=== PATIENT | female | born 1955 | race Caucasian/White ===

== ENCOUNTER 2020-03-13 09:43 | Outpatient (CLI) | payer OTHER, SELFPAY ==
--- NOTE | ~2020-03-13 | CT_ITS ---
EXAMINATION: CT abdomen pelvis w con DATE: 03/13/2020 10:38 INDICATION: Abdominal pain and swelling TECHNIQUE: Computed tomography (CT) of the abdomen and pelvis was performed with 100 mL Omnipaque-350 intravenous contrast. Automated exposure control and iterative reconstruction technique were employe d. The dose-length product was 690.92 mGy-cm. COMPARISON: None FINDINGS: Mild atelectasis/scarring in the lingula and right lower lobe. Heart size is normal. No pericardial o r pleural effusion. Cholecystectomy clips at the gallbladder fossa. Liver, pancreas and bilateral adr enal glands are normal. Multiple splenic calcification consistent with old granulomatous disease. 12 mm cyst at the lower pole of the right kidney and multiple small bilateral parapelvic cysts at the bi lateral renal satnam. Status post appendectomy with suture line along the short remaining appendiceal s tump. No abnormal bowel wall thickening or obstruction. Bladder is normal. The uterus is not identifi ed and has likely been surgically resected. No free intraperitoneal gas or fluid. No pathologically e nlarged abdominal or pelvic lymphadenopathy. Mild lumbar levoscoliosis with mild to moderate spondylo sis. Mild to moderate bilateral hip osteoarthritis. IMPRESSION: 1. No acute intra-abdominal/pelvic process. Reviewed, dictated and finalized at location A.
[2020-03-13 10:31] LABS: Estimated Glomerular Filt Rate > 60
== END 2020-03-13 09:44 | disposition home or self-care (01) ==
PROVIDERS: PCP Family Medicine; Visit Provider Family Medicine
DX: R19.09 Other intra-abdominal and pelvic swelling, mass and lump (principal)
CPT/HCPCS: 74177; Q9967

== ENCOUNTER 2020-05-07 00:42 | Outpatient (CLI) | payer OTHER, SELFPAY ==
[2020-05-07 17:41] LABS: SARS-CoV-2 RNA PCR Negative
== END 2020-05-07 00:43 | disposition home or self-care (01) ==
LOC: ANHCOVIDDT 00:42
PROVIDERS: PCP Family Medicine; Visit Provider Internal Medicine Gastroenterology
DX: Z01.812 Encounter for preprocedural laboratory examination (principal); Z20.828 Contact with and (suspected) exposure to other viral communicable diseases
CPT/HCPCS: 87635; C9803; U0003

== ENCOUNTER 2020-05-09 02:49 | Day surgery (SDC) | payer OTHER, SELFPAY ==
[2020-05-02 14:47] VITALS: BMI 33.3
[2020-05-09 10:27] VITALS: BP 122/71; PULSE 90; RESP 18; TEMP 36.6; O2SAT 97; BMI 32.5
[2020-05-09] MEDS: LACTATED RINGERS 1,000 ML 150 ML IV CONT (10:43)
--- NOTE | 2020-05-09 11:00 | WPDANESEPPF ---
Anes - Initial Pre Proc Eval Procedure: Operation Date: 05/09/20 11:30 Proposed Procedures p Colonoscopy - Woody Mathur MD Date/Time: 05/09/20 11:00 Surgeon: Woody Mathur MD Pre Op Diagnosis: Unspecified Abdominal/Pelvic Pain Patient Data Age: 64 Gender: F Height: 5 ft 5 in Weight: 88.8 kg Last Vital Signs Temp 97.8 F 05/09/20 10:27 Pulse 90 05/09/20 10:27 Resp 18 05/09/20 10:27 BP 122/71 05/09/20 10:27 Pulse Ox 97 05/09/20 10:27 Allergies Allergy/AdvReac Type Severity Reaction Status Date / Time adhesive Allergy Mild RASH Verified 05/09/20 10:25 trazodone Allergy Unknown BRAIN Verified 05/09/20 10:25 SEIZURES Home Medications Medication Instructions Recorded Confirmed Type levothyroxine 88 mcg tablet 88 mcg PO DAILY #90 tablet 11/03/19 05/02/20 Rx pravastatin 20 mg tablet See Rx Instructions .ROUTE 03/13/20 05/02/20 Rx .COMPLEX #90 tablet cholecalciferol (vitamin D3) 1,250 1,250 mcg PO WEEKLY #8 cap 03/15/20 05/02/20 Rx mcg (50,000 unit) capsule nitrofurantoin macrocrystal 100 mg 100 mg PO Q12H #10 cap 03/29/20 03/29/20 Rx capsule sodium,potassium,mag sulfates 17.5 480 ml PO .COMPLEX #354 ml 04/17/20 05/02/20 Rx gram-3.13 gram-1.6 gram oral soln fluoxetine 10 mg capsule 10 mg PO BID #180 cap 05/01/20 05/02/20 Rx fluoxetine 20 mg capsule 20 mg PO BID #180 cap 05/01/20 05/02/20 Rx pregabalin 150 mg capsule 150 mg PO BID #120 cap 05/03/20 Rx pantoprazole 40 mg tablet,delayed 40 mg PO QAM #90 tablet 05/07/20 Rx release Patient hx anesthesia problems: none Family hx anesthesia problems: none PMFSH Past Medical History Medical History (Updated 05/09/20 @ 11:00 by Ab Richard MD) Gastroesophageal reflux disease Hypothyroidism Mass of abdomen MEHRDAD on CPAP Pelvic pain Screening, lipid Family History Family History Father Hypertension Cerebrovascular accident Other Depression Diabetes mellitus Family history of alcoholism Family history of coronary artery disease Family history of malignant neoplasm of brain Family history of mental disorder Family history of seizure disorder Social History Social History Smoking status: Never smoker Alcohol intake: current Substance use type: does not use Living arrangements: with family Spiritual care concerns: No Anes - Eval Final PreProcedure Day of Procedure 05/09/20 11:00 Patient weight: overweight Heart: regular rate and rhythm Lungs: clear to auscultation Airway: Mallampati scale class II Neurological: alert and oriented Last oral intake: >/= 8 hours ASA classification: III Emergent: no Anesthetic plan: proceed Anesthesia type and monitoring: general GIVS and standard monitoring Informed Consent: The patient's anesthetic plan and its attendant risks and benefits were discussed with the patient/family/POA. Questions were solicited and answers provided to the satisfaction of the patient/family/POA.
--- NOTE | 2020-05-09 11:03 | PM.HPGS ---
History of Present Illness History of Present Illness Consent: Risks, benefits, and alternatives have been discussed and questions answered. Patient agrees to proceed with procedure. Chief complaint: Unspecified Abdominal/Pelvic Pain Narrative: Gretchen Gibson is a 64 year old female with lower abdominal pain but now resolved, she is due to have a colonoscopy. Review of Systems Constitutional: Constitutional: Denies headache(s) and Denies weakness Eyes: Eyes: Denies blurry vision ENT: Reports Normal hearing present, Denies headache(s) and Denies neck pain Cardiovascular: Cardiovascular: Denies chest pain and Denies dyspnea Respiratory: Respiratory: Denies dyspnea Gastrointestinal: Gastrointestinal: Reports no additional gastrointestinal complaints Genitourinary: Genitourinary: Denies dysuria Musculoskeletal: Musculoskeletal: Denies neck pain Integumentary/Breasts: Skin/Breast: Denies dry skin Neurologic: Reports Normal hearing present, Denies headache(s) and Denies weakness Psychiatric: Psychiatric: Denies anxiety Endocrine: Endocrine: Denies change in body appearance Hematologic/Lymphatic: Hematologic/Lymphatic: Denies easy bleeding Allergic/Immunologic: Allergic/Immunologic: Denies urticaria PMF Past Medical History Medical History (Updated 05/09/20 @ 11:03 by Woody Mathur MD) Colon cancer screening Gastroesophageal reflux disease Hypothyroidism Mass of abdomen MEHRDAD on CPAP Pelvic pain Screening, lipid Family History Family History Father Hypertension Cerebrovascular accident Other Depression Diabetes mellitus Family history of alcoholism Family history of coronary artery disease Family history of malignant neoplasm of brain Family history of mental disorder Family history of seizure disorder Social History Social History Smoking status: Never smoker Alcohol intake: current Substance use type: does not use Living arrangements: with family Spiritual care concerns: No Meds Home Medications and Allergies Home Medications Medication Instructions Recorded Confirmed Type levothyroxine 88 mcg tablet 88 mcg PO DAILY #90 tablet 11/03/19 05/02/20 Rx pravastatin 20 mg tablet See Rx Instructions .ROUTE 03/13/20 05/02/20 Rx .COMPLEX #90 tablet cholecalciferol (vitamin D3) 1,250 1,250 mcg PO WEEKLY #8 cap 03/15/20 05/02/20 Rx mcg (50,000 unit) capsule nitrofurantoin macrocrystal 100 mg 100 mg PO Q12H #10 cap 03/29/20 03/29/20 Rx capsule sodium,potassium,mag sulfates 17.5 480 ml PO .COMPLEX #354 ml 04/17/20 05/02/20 Rx gram-3.13 gram-1.6 gram oral soln fluoxetine 10 mg capsule 10 mg PO BID #180 cap 05/01/20 05/02/20 Rx fluoxetine 20 mg capsule 20 mg PO BID #180 cap 05/01/20 05/02/20 Rx pregabalin 150 mg capsule 150 mg PO BID #120 cap 05/03/20 Rx pantoprazole 40 mg tablet,delayed 40 mg PO QAM #90 tablet 05/07/20 Rx release Allergies Allergy/AdvReac Type Severity Reaction Status Date / Time adhesive Allergy Mild RASH Verified 05/09/20 10:25 trazodone Allergy Unknown BRAIN Verified 05/09/20 10:25 SEIZURES Vital Signs Vital Signs - 24 hr 05/09/20 10:27 Temperature 97.8 F Pulse Rate 90 Respiratory Rate 18 Blood Pressure 122/71 Pulse Oximetry 97 Exam Const: General: comfortable and no acute distress HENMT: General nose exam: Normal nares present Eyes: General: appearance normal, both eyes and all related structures Neck: Neck: no JVD Resp: Auscultation: clear to auscultation bilaterally Cardio: Rate: regular rate Rhythm: regular rhythm GI: Inspection: non-distended GI Palp: Yes Soft to palpation Skin: General skin exam: normal color Neuro: General: gait normal Speech: normal speech Extrem: General: normal to inspection Psych: Mental Status: mental status grossly normal Assessment and Plan Asse
[2020-05-09 11:27] VITALS: BP 104/60; PULSE 59; RESP 18; O2SAT 96
[2020-05-09 11:37] VITALS: BP 119/69; PULSE 64; RESP 18; O2SAT 98
[2020-05-09 11:47] VITALS: BP 145/70; PULSE 59; RESP 14; O2SAT 100
== END 2020-05-09 12:02 | disposition home or self-care (01) ==
PROVIDERS: PCP Family Medicine; Visit Provider Internal Medicine Gastroenterology
PROC: 0DJD8ZZ Inspection of Lower Intestinal Tract, Via Natural or Artificial Opening Endoscopic (ICD-10-PCS; CPT 45378; principal; 2020-05-09 11:30)
DX: K63.3 Ulcer of intestine (principal); K64.8 Other hemorrhoids; K21.9 Gastro-esophageal reflux disease without esophagitis; G47.33 Obstructive sleep apnea (adult) (pediatric)
CPT/HCPCS: 45380; 88305; J2704; J7120

== ENCOUNTER 2020-10-02 10:59 | Outpatient (CLI) | payer MEDICARE, SELFPAY ==
--- NOTE | ~2020-10-02 | XR_ITS ---
EXAMINATION: XR hip RT min 2V DATE: 10/02/2020 11:18 INDICATION: Right hip pain. TECHNIQUE: 2 views of right hip were obtained. COMPARISON: CT abdomen and pelvis 03/13/2020 FINDINGS: Bone alignment is normal. No fracture. There is moderate right hip osteoarthritis. IMPRESSION: 1. Moderate right hip osteoarthritis. Reviewed, dictated and finalized at location A.
== END 2020-10-02 11:00 | disposition home or self-care (01) ==
LOC: CHSIMG 11:01
PROVIDERS: PCP Family Medicine; Visit Provider Family Medicine
DX: M25.551 Pain in right hip (principal)
CPT/HCPCS: 73502

== ENCOUNTER → 2020-10-27 10:07 | Outpatient (CLI) | payer MEDICARE, SELFPAY ==
--- NOTE | ~2020-10-27 | MR_ITS ---
EXAMINATION: MR hip RT wo con DATE: 10/27/2020 12:00 INDICATION: Right hip pain. TECHNIQUE: Magnetic resonance imaging (MRI) of the right hip was performed without intravenous contra st. Sequences included axial and coronal PD-weighted FS FSE and axial T1-weighted FSE of the pelvis. Sequences of the hip included 2D FIESTA, T1-weighted fast GRE, and axial, coronal, and sagittal PD-we ighted FS FSE. COMPARISON: Right hip radiographs 10/02/2020 FINDINGS: Bones/cartilage: There is lumbar levoscoliosis and moderate spondylosis. The femoral head/neck offsets are normal. The hip joints demonstrate symmetric moderate osteoarthritis characterized by deep partial thickness car tilage loss and osteophytes. Labrum: The right acetabular labrum is intact. Fluid: There is no hip joint effusion. There is mild right-sided trochanteric bursitis. Soft tissues: The iliopsoas tendons are normal. There is moderate tendinopathy of the hamstring origins bilaterally . The gluteus minimus and gluteus medius tendons are intact bilaterally. IMPRESSION: 1. Moderate osteoarthritis of the hips. Reviewed, dictated and finalized at location A.
== END ==
PROVIDERS: PCP Family Medicine; Visit Provider Family Medicine
DX: M16.11 Unilateral primary osteoarthritis, right hip (principal)
CPT/HCPCS: 73721

== ENCOUNTER 2020-11-21 13:23 | Outpatient (CLI) | payer MEDICARE, SELFPAY ==
--- NOTE | ~2020-11-21 | XR_ITS ---
EXAMINATION: XR lg joint inject/asp w image DATE: 11/21/2020 14:22 INDICATION: Right hip arthritis is evident with pain. TECHNIQUE: A time-out was performed to verify the patient's name, date of , and procedure to b e performed. The procedure including the risks, benefits, and alternatives was discussed with the pat ient. Risks discussed included bleeding and infection. The patient understood the risks and agreed to proceed. The skin overlying the right hip joint was prepped and draped in usual sterile fashion. A nesthetic was administered with 1% lidocaine subcutaneously. A 22 G needle was advanced under fluoro scopic guidance into the joint. Injection of 1 mL of Omnipaque 240 confirmed intra-articular positio n of the needle. Subsequently, injectate consisting of 3 mm of a 2:1 mixture of 0.5% Marcaine: 80 mg /mL Depo-Medrol for a total dose of 80 mg Depo-Medrol was instilled. Washout of contrast was seen con firming intra-articular administration. The needle was removed and the entry site was cleaned and colleen ssed. There were no immediate complications. Fluoroscopy exposure time was 0.1 minutes. The total nu mber of images was 2. FINDINGS: Real-time fluoroscopy demonstrates the needle in the right hip joint. Patient's pain prior to procedure:3/10. Patient's pain following the procedure: 0/10. IMPRESSION: 1. Right hip joint injection of local anesthetic and steroid with decrease in the patient's presentin g pain. Reviewed, dictated and finalized at location A. IMPRESSION: 1. Right hip joint injection of local anesthetic and steroid with decrease in t he patient's presenting pain.
== END 2020-11-21 13:24 | disposition home or self-care (01) ==
PROVIDERS: PCP Family Medicine; Visit Provider Orthopaedic Surgery
DX: M16.11 Unilateral primary osteoarthritis, right hip (principal)
CPT/HCPCS: 20610; 77002; J1040; Q9966

== ENCOUNTER 2021-09-24 10:27 | Outpatient (CLI) | payer MEDICARE, SELFPAY ==
--- NOTE | ~2021-09-24 | XR_ITS ---
EXAMINATION: XR lg joint inject/asp w image DATE: 09/24/2021 11:12 INDICATION: Right hip arthritis. TECHNIQUE: A time-out was performed to verify the patient's name, date of , and procedure to b e performed. The procedure including the risks, benefits, and alternatives was discussed with the pat ient. Risks discussed included bleeding and infection. The patient understood the risks and agreed to proceed. The skin overlying the right hip joint was prepped and draped in usual sterile fashion. A nesthetic was administered with 1% lidocaine subcutaneously. A 22 G needle was advanced under fluoro scopic guidance into the joint. Injection of 1 mL of Omnipaque 240 confirmed intra-articular positio n of the needle. Subsequently, injectate consisting of 2 mL 0.5% bupivacaine and 2 mL 40 mg/mL Depo- Medrol was instilled. The needle was removed and the entry site was cleaned and dressed. There were no immediate complications. Fluoroscopy exposure time was 0.1 minutes. The total number of images wa s 2. FINDINGS: Real-time fluoroscopy demonstrates the needle in the right hip joint. Patient's pain prior to procedure:12/27. Patient's pain following the procedure: 08/29. IMPRESSION: 1. Fluoroscopy guided right hip joint injection of local anesthetic and steroid with decrease in the patient's presenting pain. Reviewed, dictated and finalized at location A. [employer] WORK[employer]
== END 2021-09-24 10:28 | disposition home or self-care (01) ==
LOC: ANHIMG 10:34
PROVIDERS: PCP Family Medicine; Visit Provider Orthopaedic Surgery
DX: M25.551 Pain in right hip (principal)
CPT/HCPCS: 20610; 77002; J1030; Q9966

== ENCOUNTER 2022-02-21 11:43 | Outpatient (CLI) | payer MEDICARE, SELFPAY ==
--- NOTE | 2022-02-21 12:28 | ECG_ITS ---
Measurements Intervals [place] Rate: 68 P: [place]: 0 QRS: -1 QRSD: 70 T: 35 QT: 378 QTc: 404 Interpretive Statements BASELINE ARTIFACT/POOR QUALITY ECG SUPRAVENTRICULAR RHYTHM LOW QRS VOLTAGE IN PRECORDIAL LEADS [QRS DEFLECTION < 1.0 mV IN CHEST LEADS] NONSPECIFIC ST & T-WAVE ABNORMALITY BASELINE ARTIFACT PRECLUDES MORE ACCURATE RHYTHM DIAGNOSIS Electronically Signed On 02-21-2022 16:32:48 CDT by Jon Michelle M.D.
[2022-02-21 13:05] LABS: Urine Cotinine NEGATIVE
[2022-02-21 13:07] LABS: Albumin Level 4.4 g/dL (3.5-5.1); Anion Gap 7 mmol/L (8-16); Basophils Absolute Auto 0.1 K/mm3 (0.0-0.1); Basophils Percent Auto 0.9 % (0.2-1.2); Blood Urea Nitrogen 8 mg/dL (7-17); Calcium 9.1 mg/dL (8.4-10.2); Carbon Dioxide 28 mmol/L (22-30); Chloride 106 mmol/L (98-107); Eosinophils Absolute Auto 0.2 K/mm3 (0-0.3); Eosinophils Percent Auto 3.4 % (0-4.4); Estimated Glomerular Filt Rate > 60; Glucose 116 mg/dL (65-110); Hematocrit 42.9 % (37.0-47.0); Hemoglobin 13.8 g/dL (12.0-15.0); Immature Granulocyte Absolute 0.01 K/mm3 (0.00-0.031); Immature Granulocyte Percent A 0.2 % (0-0.5); Lymphocytes Absolute Auto 1.67 K/mm3 (0.9-3.2); Lymphocytes Percent Auto 29.8 % (18.3-44.2); Mean Corpuscular HGB Conc 32.2 g/dl (32-36); Mean Corpuscular Hemoglobin 30.3 pg (26-34); Mean Corpuscular Volume 94.3 fl (80-100); Mean Platelet Volume 10.2 fl (7.4-10.4); Monocytes Absolute Auto 0.5 K/mm3 (0.1-0.6); Monocytes Percent Auto 8.7 % (2.6-8.5); Neutrophils Absolute Auto 3.2 K/mm3 (1.3-6.7); Platelet Count Result 207 k/mm3 (150-375); Potassium 4.2 mmol/L (3.4-5.0); Red Blood Count 4.55 M/mm3 (4.2-5.4); Sodium 141 mmol/L (137-145); White Blood Count 5.6 K/mm3 (4.5-10.0)
[2022-02-21 13:09] LABS: Hemoglobin A1C 5.4 % (<5.7)
[2022-02-21 13:26] LABS: Partial Thromboplastin Time 25.8 SECONDS (22.3-36.8)
[2022-02-21 14:13] LABS: Appearance Urine Clear (Clear); Bilirubin Urine Negative (Negative); Blood Urine Negative (Negative); Color Urine Yellow (Yellow); Glucose Urine UA Negative (Negative); Ketones Urine Negative (Negative); Leukocyte Esterase Ur Negative LEU/UL (Negative); Nitrate Urine Negative (Negative); Protein Urine Negative (Negative); Urobilinogen Urine 0.2 mg/dL (<2.0)
[2022-02-21 14:16] LABS: Add Urine Microscopic? NO
== END 2022-02-21 11:44 | disposition home or self-care (01) ==
LOC: ANHSURGERY 11:46
PROVIDERS: PCP Family Medicine; Visit Provider Orthopaedic Surgery
DX: M17.10 Unilateral primary osteoarthritis, unspecified knee (principal); Z01.818 Encounter for other preprocedural examination; R94.31 Abnormal electrocardiogram [ECG] [EKG]
CPT/HCPCS: 80048; 80307; 81003; 82040; 83036; 85025; 85610; 85730; 87081; 93005

== ENCOUNTER 2022-03-06 18:22 | Observation (INO) | payer MEDICARE, SELFPAY ==
[2022-02-21 11:21] VITALS: BP 140/66; PULSE 68; RESP 16; TEMP 37.4; O2SAT 99
--- NOTE | 2022-02-21 11:46 | PC.NURSE ---
Report to the Outpatient Waiting Room, entrance under the green pavilion located off [facility], at time _0830_ on date _[id number]_. OR Time: _1030_. - You and your visitor will be asked a series of questions to screen for COVID 19 for your protection. - Only one visitor is allowed at this time. - The patient visitor is requested to leave or wait in car when not with patient. - A mask is required within the hospital. Patients may have clear liquids (water, carbonated beverages, clear teas, apple juice) until 3 hours prior to surgery with a maximum of 20 ounces. - No food from midnight until time of surgery Take the following medications with a SIP of water the morning of surgery: ___Bupropion, Fluoxetine, Levothyroxine and Pregabalin Medications to discontinue per physician None Date to take last dose Please no make-up, nail estonian, hairspray, perfume, deodorant, or body powder the day of surgery. No jewelry (including any body piercings) or valuables the day of surgery, leave them at home. Please take a shower or bath the night before, or the morning of, surgery with an antibacterial soap. Wear comfortable, loose fitting clothing. - Jewelry must be removed prior to entering the operating room. Rings and piercings that are not removed may be cut off. - The hospital will not accept responsibility for valuables. - Please leave all valuables, including medications, at home the day of surgery. If you are going home after surgery, a licensed electric lift truck driver must drive you home. - NO public transportation without another adult. - We recommend that an adult stay with you for 24 hours following discharge. - We also recommend that you do not drive, make important decision, drink alcoholic beverages, or take any drugs that were not prescribed by your health care provider for at least 24 hours after your discharge time. Follow any additional instructions given to you from your surgeon. If you or anyone in your household have experienced Covid symptoms in the past week, please notify your surgeon or the nurse liaison at the phone number below for possible testing. Telephone instructions given to _Patient__and asked if any additional questions and then verbalized understanding. Patient advised to call surgeon office or pre surgery nurse liaison [phone] if any additional questions.
[2022-02-21 11:54] VITALS: BMI 31.1
[2022-03-05] VITALS (13 sets, daily range): BP systolic 106–136; BP diastolic 54–77; PULSE 65–88; RESP 7–18; TEMP 36.1–36.7; O2SAT 93–100
--- NOTE | 2022-03-05 07:05 | WPDHPUPDATE1 ---
History and Physical Update Update Date/Time: 03/05/22 07:05 History and Physical has been reviewed, including an updated exam of the patient. There are NO changes in the patient's condition. Risks, benefits, and alternatives have been discussed and questions answered. Patient agrees to proceed with procedure.
[2022-03-05] MEDS: ACETAMINOPHEN 500 MG TABLET 1000 MG PO (08:50)
[2022-03-05] MEDS: LACTATED RINGERS 1,000 ML 30 ML IV CONT ×2 (08:51→13:52)
[2022-03-05] MEDS: TRANEXAMIC ACID 1,000MG/ISO100 1,000 MG/100 ML BAG 200 MG IVPB (09:09)
--- NOTE | 2022-03-05 10:22 | WPDANESEPPF ---
Anes - Initial Pre Proc Eval Procedure: Operation Date: 03/05/22 10:30 Proposed Procedures p Right Total Knee Arthroplasty with Left Knee Cortisone Injection - García Ray MD Date/Time: 03/05/22 10:22 Surgeon: García Ray MD Pre Op Diagnosis: Kan Knee DJD Patient Data Age: 66 Gender: F Height: 1.65 m Weight: 80.7 kg Last Vital Signs Temp 36.1 C L 03/05/22 09:15 Pulse 65 03/05/22 09:15 Resp 16 03/05/22 09:15 BP 120/62 03/05/22 09:15 Pulse Ox 99 03/05/22 09:15 O2 Del Method Room Air 03/05/22 09:15 Allergies Allergy/AdvReac Type Severity Reaction Status Date / Time adhesive Allergy Mild RASH Verified 03/05/22 09:24 trazodone Allergy Unknown BRAIN Verified 03/05/22 09:24 SEIZURES Home Medications Medication Instructions Recorded Confirmed Type tizanidine 4 mg tablet 4 mg PO QHS PRN muscle spasticity 06/25/21 03/05/22 Rx #30 tabs pantoprazole 40 mg tablet,delayed 40 mg PO QAM #90 tabs 07/09/21 03/05/22 Rx release bupropion HCl 150 mg 24 hr tablet, 150 mg PO QAM #90 tabs 07/18/21 03/05/22 Rx extended release (Wellbutrin XL) levothyroxine 88 mcg tablet 88 mcg PO DAILY #90 tabs 09/02/21 03/05/22 Rx pregabalin 150 mg capsule 150 mg PO BID #180 caps 11/13/21 03/05/22 Rx Cbd Gummy 1 tab-cap PO HS 02/21/22 03/05/22 History Lactobacillus 1 cap PO HS 02/21/22 03/05/22 History acidophilus-Bifidobac.animalis 2.5 billion cell capsule (Daily Probiotic) acetaminophen 650 mg 325 mg PO HS 02/21/22 03/05/22 History tablet,extended release fluoxetine 10 mg capsule 10 mg PO Q12H 02/21/22 03/05/22 History fluoxetine 20 mg capsule 20 mg PO Q12H 02/21/22 03/05/22 History pravastatin 20 mg tablet 20 mg PO HS 02/21/22 03/05/22 History chlorhexidine gluconate 4 % 1 applic topical ONCE #237 mL 02/26/22 03/05/22 Rx topical liquid (Hibiclens) Patient hx anesthesia problems: none Family hx anesthesia problems: none Results Review: All pre-operative results and documents have been reviewed as part of the pre-operative evaluation. [facility] Past Medical History Medical History BMI 31.0-31.9,adult BMI 32.0-32.9,adult BMI greater than 30 Changing skin lesion Colon cancer screening Depression Gastroesophageal reflux disease History of cough History of ear pain History of high cholesterol History of paranasal sinus congestion Hypothyroidism Mass of abdomen MEHRDAD on CPAP MEHRDAD on CPAP Osteoporosis Pelvic pain Right hip pain RLQ abdominal pain Screening, lipid Skin lesion Ulcer, colon Surgical History Surgical History (Updated 03/05/22 @ 10:22 by Rickey Diaz MD) H/O arthroscopic knee surgery H/O: hysterectomy History of cholecystectomy Family History Family History Father Hypertension Cerebrovascular accident Other Depression Diabetes mellitus Family history of alcoholism Family history of coronary artery disease Family history of malignant neoplasm of brain Family history of mental disorder Family history of seizure disorder Social History Social History Smoking status: Never smoker Alcohol intake: never Substance use: never Substance use type: does not use Other substance usage details: CBD gummies Additional living arrangements comments: Gender identity (if verbalized by the patient): Female Sexual Orientation (if Verbalized by the Patient): Straight or Heterosexual Spiritual care concerns: No Agree to blood products: Yes Anes - Eval Final PreProcedure Day of Procedure 03/05/22 10:22 Patient weight: obese Heart: regular rate and rhythm Lungs: clear to auscultation Airway: Mallampati scale class II Neurological: alert and oriented Last oral intake: >/= 8 hours ASA classification: III Emergent: no Anesthetic plan: proceed Anes
--- NOTE | 2022-03-05 10:45 | PM.IMHP ---
H&P: HPI History of Present Illness Date/Time: 03/05/22 10:45 Chief Complaint: RIGHT KNEE DJD, LEFT KNEE DJD Narrative: Pt presents with Right and Left knee pain that has been present for approximately 2 weeks. NKI. Pt states it feels as if her knee is popping out of place and shifting. The joint feels very unstable. She had a few days where she was unable to bear full weight through the LLE d/t her pain. She has since been ambulating w/ a walker for offloading and stability. She has frequent popping during [id number]/change in position activities. She is finding it difficult to fully extend the left knee d/t her pain. She is taking Tylenol Arthritis for her pain and is unable to take NSAIDS. Current symptoms: Reports popping, instability, shifting and stiffness Location: lateral Character: intermittent, stabbing, worsens w/ weight bearing and throbbing Onset: 3-4 weeks Exacerbated by: weight bearing, kneeling, squatting, stairs and prolonged activity Previous treatments: Braces: left, Walker: left, Ice: left and Elevation: left Improved by treatment/surgery: too soon to tell Review of Systems Review of Systems: All systems reviewed & are unremarkable except as noted in HPI and below Constitutional: Constitutional: Reports no additional constitutional complaints Eyes: Eyes: Reports no additional eye complaints ENT: Reports system reviewed and no additional complaints, except as documented Cardiovascular: Cardiovascular: Reports no additional cardiovascular complaints Respiratory: Respiratory: Reports no additional respiratory complaints Gastrointestinal: Gastrointestinal: Reports no additional gastrointestinal complaints Musculoskeletal: Musculoskeletal: Reports as per HPI Integumentary/Breasts: Skin/Breast: Reports system reviewed and no additional complaints, except as docu Psychiatric: Psychiatric: Reports no additional psychiatric complaints Endocrine: Endocrine: Reports no additional endocrine complaints Hematologic/Lymphatic: Hematologic/Lymphatic: Reports no additional hematologic/lymphatic complaints Allergic/Immunologic: Allergic/Immunologic: Reports no additional allergic/immunologic complaints [facility] Past Medical History Medical History BMI 31.0-31.9,adult BMI 32.0-32.9,adult BMI greater than 30 Changing skin lesion Colon cancer screening Depression Gastroesophageal reflux disease History of cough History of ear pain History of high cholesterol History of paranasal sinus congestion Hypothyroidism Mass of abdomen MEHRDAD on CPAP MEHRDAD on CPAP Osteoporosis Pelvic pain Right hip pain RLQ abdominal pain Screening, lipid Skin lesion Ulcer, colon Surgical History Surgical History H/O arthroscopic knee surgery H/O: hysterectomy History of cholecystectomy Family History Family History Father Hypertension Cerebrovascular accident Other Depression Diabetes mellitus Family history of alcoholism Family history of coronary artery disease Family history of malignant neoplasm of brain Family history of mental disorder Family history of seizure disorder Social History Social History Smoking status: Never smoker Alcohol intake: never Substance use: never Substance use type: does not use Other substance usage details: CBD gummies Additional living arrangements comments: Gender identity (if verbalized by the patient): Female Sexual Orientation (if Verbalized by the Patient): Straight or Heterosexual Spiritual care concerns: No Agree to blood products: Yes Meds Home Medications and Allergies Home Medications Medication Instructions Recorded Confirmed Type tizanidine 4 mg tablet 4 mg PO QHS PRN muscle spasticity 06/25/21 03/05/22 Rx #30 t
--- NOTE | 2022-03-05 11:05 | WPDANESPNB ---
Anes - Peripheral Nerve Block Date/Time: 03/05/22 11:05 I have discussed with the patient/family/POA the placement of a peripheral nerve block for post-operative pain management, including associated risks, benefits, complications, and side effects. Alternative methods of post-operative analgesia were detailed. Questions were solicited and answers provided to the satisfaction of the patient/family/POA. Time-Out: A pre-procedural Time-Out was completed immediately before starting the procedure and confirmed: Patient Identification, Site, Procedure, Patient Position and the Availability of Requisite Equipment. Clinical Indications: Acute post-operative pain management requested by the operative surgeon. Nerve Block Insertion Note Anes-nerve block: femoral right Patient position: supine Skin prep: chlorhexidine Needle: 22 gauge, stimulating, insulated echogenic needle. Needle length: 50 mm Technique: nerve stimulation lost at (mA) (0.35) Injectate: bupivacaine 0.5% with epi 5 mcg/ml (25 cc) Observations: tolerated well Complications: none Procedure start time:: 1102 Procedure end time:: 1105
[2022-03-05] MEDS: ceFAZolin 2 GM/D5W 50 ML 2 GM/50 ML BAG IVPB ×2 (11:15→17:30)
[2022-03-05] MEDS: TRANEXAMIC ACID 1,000 MG/10 ML AMPUL 1000 MG IV PUSH (13:04)
[2022-03-05] MEDS: methylPREDNISolone ACETATE 80 MG/ML VIAL I-ARTICULR (13:59)
[2022-03-05] MEDS: fentaNYL CITRATE INJ (*CRX) 100 MCG/2 ML VIAL 25 MCG IV PUSH ×5 (14:08→14:56)
--- NOTE | 2022-03-05 14:50 | W.PM.PROC2 ---
Procedure Note - Detailed Date of Procedure 03/05/22 Pre-op Diagnosis Kan Knee DJD Post-op Diagnosis Same Procedure Performed RIGHT TKA, LEFT KNEE INJECTION Surgeon García Ray MD Anesthesia General Description of Procedure THE RIGHT KNEE WAS PREPPED AND DRAPED IN THE STERILE FASHION. THERE WAS A 20 DEGREE FLEXION CONTRACTURE AND VALGUS DEFORMITY. A MIDLINE SKIN INCISION WAS MADE. A MEDIAL PARAPATELLAR ARTHROTOMY WAS MADE. THE PATELLA WAS EVERTED. THERE WAS TRICOMPARTMENT DJD. THERE WAS MINIMAL PATELLA DJD. AN INTRAMEDULLARY TING WAS PLACED IN THE FEMUR. A DISTAL FEMORAL CUT WAS MADE IN 5 DEGREES OF VALGUS REMOVING APPROXIMATELY 11 MM OF BONE FROM THE DISTAL FEMUR. THE FEMUR WAS SIZED TO 62.5. A 62.5 FEMORAL CUTTING BLOCK WAS PLACED IN 3 DEGREES OF EXTERNAL ROTATION AND IN ALIGNMENT WITH STEPHANIE'S LINE AND THE TRANSEPICONDYLAR AXIS. ANTERIOR POSTERIOR AND CHAMFER CUTS WERE MADE. THE CUTS WERE EXCELLENT. NEXT AN INTRAMEDULLARY CUTTING GUIDE WAS PLACED IN THE TIBIA. A TRANS TIBIAL CUT WAS MADE ALONG THE LONG AXIS OF THE TIBIA. APPROXIMATELY 10 MM OF BONE WAS REMOVED FROM THE HIGH SIDE OF THE TIBIA. THE TIBIA WAS THEN PLANED TO A SMOOTH SURFACE. POSTERIOR FEMORAL OSTEOPHYTES WERE REMOVED FROM THE FEMORAL CONDYLES. A 67 TIBIAL TRIAL WAS PLACED IN ALIGNMENT WITH THE 1/3 MEDIAL ASPECT OF THE TIBIAL TUBERCLE. THEN A 62.5 FEMORAL TRIAL COMPONENT WAS PLACED. BOTH HAD EXCELLENT FITS. EVENTUALLY A 14 MM POLYETHYLENE TRIAL COMPONENT WAS PLACED. THE KNEE WAS TAKEN THROUGH A RANGE OF MOTION. THE KNEE CAME OUT TO FULL EXTENSION. THERE WAS NO ABNORMAL TILT TO THE PATELLA. THERE WAS GOOD A/P AND VARUS/VALGUS STABILITY. THERE WAS NO EXCESSIVE ROLL BACK WITH FLEXION. THE TRIAL COMPONENTS WERE REMOVED. THEN A 62.5 FEMORAL COMPONENT AND 67 TIBIAL COMPONENT WITH A 14 POLYETHYLENE COMPONENT WERE CEMENTED INTO PLACE. ONCE THE CEMENT WAS HARD THE KNEE WAS TAKEN THROUGH A ROM AGAIN AND FOUND TO BE STABLE WITH NO PATELLA TILT NO EXCESSIVE ROLL BACK WITH FLEXION AND GOOD STABILITY WITH COMPLETE AND FULL EXTENSION. THE KNEE WAS IRRIGATED WITH STERILE BETADINE AND WATER FOR ABOUT 3 MINUTES. THE BLEEDERS WERE CAUTERIZED. THE ARTHROTOMY WAS REPAIRED WITH NUMBER 1 VICRYL. THE SUB CUTANEOUS LAYER WITH 2-0 VICRYL AND THE SKIN WITH MELIDA. THE WOUND WAS WASHED AND A STERILE DRESSING WAS APPLIED. NEXT THE LEFT KNEE WAS PREPPED AND 1CC 80 MG DEPO MEDROL AND 4 CC MARCAINE 0.5% WAS INJECTED IN TO THE LEFT KNEE JOINT. PATIENT WAS EXTUBATED AND SENT TO RECOVERY ROOM Estimated Blood Loss -200.0 Pathology None sent Complications No immediate complications Condition Stable Disposition PACU
--- NOTE | 2022-03-05 15:44 | ADMGEN ---
This patient, Gretchen Gibson, was admitted to 2 Medical Room 259-01. Patient/family oriented to hospital policies and general routines including ID bracelet, bed and alarms, visiting hours, pain management, procedures, bathroom and other care routines, personal items, smoking policy, room service/diet, and visiting hours. Information on how to activate the Rapid Response Team has been discussed. Patient/Family are encouraged to report perceived risks to care and to ask questions if they do not understand what they are told or what they should do.
[2022-03-05] MEDS: oxyCODONE/ACETAMINOPHEN (*CRX) 5-325 MG TABLET 1 TABLET PO (15:56)
[2022-03-05] MEDS: KETOROLAC 15 MG/ML VIAL (*BKC) IV PUSH (17:31)
[2022-03-05] MEDS: SENNA/DOCUSATE SODIUM TABLET 2 TAB PO (17:32)
[2022-03-05] MEDS: PREGABALIN (*CRX) 75 MG CAPSULE 150 MG PO (17:33)
[2022-03-05] MEDS: SODIUM CHLORIDE 0.9% IV 1,000 ML 125 ML IV CONT (18:09)
[2022-03-05] MEDS: FLUoxetine HCL 20 MG CAPSULE PO (20:55)
[2022-03-05] MEDS: ASPIRIN 325 MG ENTERIC TABLET PO (20:55)
[2022-03-05] MEDS: FLUoxetine HCL 10 MG CAPSULE PO (20:55)
[2022-03-05] MEDS: PRAVASTATIN SODIUM 20 MG TABLET PO (20:56)
--- NOTE | ~2022-03-06 | XR_ITS ---
EXAMINATION: XR knee RT 2V DATE: 03/05/2022 14:07 CDT INDICATION: Right total knee arthroplasty TECHNIQUE: 2 views right knee FINDINGS: There is a right total knee arthroplasty in expected position. Subcutaneous gas with fluid and air in the joint and overlying skin suzette are consistent with recent surgery. No evidence of p eriprosthetic fracture. IMPRESSION: 1. Recent right total knee arthroplasty. Reviewed, dictated and finalized at location B.
[2022-03-06] MEDS: KETOROLAC 15 MG/ML VIAL (*BKC) IV PUSH ×4 (00:01→17:38)
[2022-03-06 00:31] VITALS: BP 100/48; PULSE 65; RESP 16; TEMP 36.3; O2SAT 96
[2022-03-06] MEDS: ceFAZolin 2 GM/D5W 50 ML 2 GM/50 ML BAG IVPB ×2 (02:14→09:30)
[2022-03-06 05:45] LABS: Basophils Percent Auto 0.1 % (0.2-1.2); Hematocrit 33.5 % (37.0-47.0); Hemoglobin 10.7 g/dL (12.0-15.0); Immature Granulocyte Absolute 0.08 K/mm3 (0.00-0.031); Immature Granulocyte Percent A 0.6 % (0-0.5); Lymphocytes Absolute Auto 0.96 K/mm3 (0.9-3.2); Lymphocytes Percent Auto 7.7 % (18.3-44.2); Mean Corpuscular HGB Conc 31.9 g/dl (32-36); Mean Corpuscular Hemoglobin 30.6 pg (26-34); Mean Corpuscular Volume 95.7 fl (80-100); Mean Platelet Volume 10.1 fl (7.4-10.4); Monocytes Absolute Auto 1.1 K/mm3 (0.1-0.6); Monocytes Percent Auto 8.4 % (2.6-8.5); Neutrophils Absolute Auto 10.4 K/mm3 (1.3-6.7); Neutrophils Percent Auto 83.2 % (45.5-73.1); Platelet Count Result 194 k/mm3 (150-375); Red Cell Distribution Width 13.2 % (11.5-14.5); White Blood Count 12.5 K/mm3 (4.5-10.0)
[2022-03-06 05:56] LABS: Anion Gap 8 mmol/L (8-16); Blood Urea Nitrogen 11 mg/dL (7-17); Calcium 8.1 mg/dL (8.4-10.2); Carbon Dioxide 24 mmol/L (22-30); Chloride 104 mmol/L (98-107); Estimated CRCL calculation 63 ml/min; Estimated Glomerular Filt Rate > 60; Glucose 175 mg/dL (65-110); Potassium 4.4 mmol/L (3.4-5.0); Sodium 136 mmol/L (137-145)
[2022-03-06] MEDS: LEVOTHYROXINE SODIUM 88 MCG TABLET PO (06:00)
[2022-03-06 06:07] VITALS: BP 114/48; PULSE 70; RESP 18; TEMP 36.2; O2SAT 98
[2022-03-06] MEDS: PREGABALIN (*CRX) 75 MG CAPSULE 150 MG PO ×2 (08:50→16:08)
[2022-03-06] MEDS: FLUoxetine HCL 20 MG CAPSULE PO ×2 (08:50→21:15)
[2022-03-06] MEDS: buPROPion HCL XL (24 HR) 150 MG TABCR PO (08:50)
[2022-03-06] MEDS: ASPIRIN 325 MG ENTERIC TABLET PO ×2 (08:50→21:15)
[2022-03-06] MEDS: polyethylene glycoL 3350 17 GM POWD.PACK PO (08:50)
[2022-03-06] MEDS: SENNA/DOCUSATE SODIUM TABLET 2 TAB PO ×2 (08:50→16:09)
[2022-03-06] MEDS: PANTOPRAZOLE 40 MG TABLET PO (08:51)
[2022-03-06] MEDS: FLUoxetine HCL 10 MG CAPSULE PO ×2 (08:51→21:15)
[2022-03-06 10:10] VITALS: BP 115/55; PULSE 79; RESP 16; TEMP 36.3; O2SAT 97
[2022-03-06 13:40] VITALS: BP 118/43; PULSE 75; RESP 16; TEMP 36.6; O2SAT 97
[2022-03-06] MEDS: oxyCODONE/ACETAMINOPHEN (*CRX) 5-325 MG TABLET 1 TABLET PO (16:16)
[2022-03-06] MEDS: ONDANSETRON INJ 4 MG/2 ML VIAL IV PUSH (16:18)
--- NOTE | 2022-03-06 16:37 | PC.NURSE ---
On 03/06/22, the License pending nurse, Zachary Sanchez, provided care and completed [employer] documentation on this patient. I have reviewed the License pending nurse's documentation and agree with the findings.
--- NOTE | 2022-03-06 17:07 | PM.PNORT ---
Progress Note: A&P Assessment and Plan (1) DJD (degenerative joint disease) of knee: Qualifiers: Osteoarthritis type: primary Laterality: bilateral Qualified Code(s): M17.0 - Bilateral primary osteoarthritis of knee Code(s): M17.10 - Unilateral primary osteoarthritis, unspecified knee Status: Acute Assessment and Plan: POD 1 DOING WELL. SLOW PROGRESS WITH PT. CONTINUE PT. DC TMRW Subjective Subjective Date/Time Seen: 03/06/22 17POD 1 DOING WELL. NO CALF PAIN Exam Extrem: Other: VSS AFEBRILE DRESSING DRY NV INTACT NEG HOMANS SIGN CALF SOFT NON TENDER Objective Data Vital Signs Vital Signs: Vital Signs - 24 hr 03/05/22 17:40 03/05/22 20:02 03/05/22 20:00 Temperature 36.4 C 36.6 C Pulse Rate 67 85 Respiratory Rate 18 18 Blood Pressure 106/60 108/54 L Pulse Oximetry 97 97 Oxygen Delivery Room Air 03/06/22 00:31 03/06/22 06:07 03/06/22 07:32 Temperature 36.3 C L 36.2 C L Pulse Rate 65 70 Respiratory Rate 16 18 Blood Pressure 100/48 L 114/48 L Pulse Oximetry 96 98 Oxygen Delivery Room Air 03/06/22 10:10 03/06/22 08:50 03/06/22 13:40 Temperature 36.3 C L 36.6 C Pulse Rate 79 75 Respiratory Rate 16 16 Blood Pressure 115/55 L 118/43 L Pulse Oximetry 97 97 Oxygen Delivery Room Air Intake/Output Intake/Output: Intake & Output 03/03/22 03/04/22 03/05/22 03/06/22 23:59 23:59 23:59 23:59 Intake Total 1040 300 Balance 1040 300 Meds/Results Medications: Active Medications Generic Name Dose Route Start Last Admin Trade Name Freq PRN Reason Stop Dose Admin Acetaminophen 1,000 mg 03/05/22 15:15 Acetaminophen 500 Mg Tablet PO Q6H PRN Pain Rated 1-3 Aspirin 325 mg 03/05/22 21:00 03/06/22 08:50 Aspirin 325 Mg Enteric Tablet PO 325 mg Q12HR JASE Administration Bupropion HCl 150 mg 03/06/22 09:00 03/06/22 08:50 Bupropion Hcl Xl (24 Hr) 150 Mg Tabcr PO 150 mg QAM JASE Administration Diazepam 5 mg 08/17/22 15:15 Diazepam (*Crx) 5 Mg Tablet PO Q8H PRN Spasms Diphenhydramine HCl 25 mg 03/05/22 15:15 Diphenhydramine Hcl Inj 50 Mg/Ml Vial IV PUSH Q6H PRN Itching Fluoxetine HCl 10 mg 03/05/22 21:00 03/06/22 08:51 Fluoxetine Hcl 10 Mg Capsule PO 10 mg Q12HR JASE Administration Fluoxetine HCl 20 mg 03/05/22 21:00 03/06/22 08:50 Fluoxetine Hcl 20 Mg Capsule PO 20 mg Q12H JASE Administration Ketorolac Tromethamine 15 mg 03/05/22 18:00 03/06/22 12:04 Ketorolac 15 Mg/Ml Vial (*Bkc) IV PUSH 03/06/22 18:01 15 mg Q6HR JASE Administration Levothyroxine Sodium 88 mcg 03/06/22 06:30 03/06/22 06:00 Levothyroxine Sodium 88 Mcg Tablet PO 88 mcg DAILY@0630 JASE Administration Naloxone HCl 0.1 mg 03/05/22 15:15 Naloxone Hcl 0.4 Mg/Ml Vial IV PUSH Q2M PRN Opiate Reversal Ondansetron HCl 4 mg 03/05/22 15:15 03/06/22 16:18 Ondansetron Inj 4 Mg/2 Ml Vial IV PUSH 4 mg Q4H PRN Administration Nausea And Vomiting Oxycodone/Acetaminophen 1 tablet 03/05/22 15:15 03/06/22 16:16 Oxycodone/Acetaminophen (*Crx) 5-325 Mg Tablet PO 1 tablet Q4H PRN Administration Pain Rated 4-6 Oxycodone/Acetaminophen 2 tablet 03/05/22 15:15 Oxycodone/Acetaminophen (*Crx) 5-325 Mg Tablet PO Q6H PRN Pain Rated 7-10 Pantoprazole Sodium 40 mg 03/06/22 09:00 03/06/22 08:51 Pantoprazole 40 Mg Tablet PO 40 mg QAM JASE Administration Polyethylene Glycol 17 gm 03/06/22 09:00 03/06/22 08:50 Polyethylene Glycol 3350 17 Gm Powd.Pack PO 17 gm QAM JASE Administration Pravastatin Sodium 20 mg 03/05/22 21:00 03/05/22 20:56 Pravastatin Sodium 20 Mg Tablet PO 20 mg HS JASE Administration Pregabalin 150 mg 03/05/22 17:00 03/06/22 16:08 Pregabalin (*Crx) 75 Mg Capsule PO 150 mg BID JASE Administration Senna/Docusate Sodium 2 tab 03/05/22 17:00 03/06/22 16:09 Senna/Docusate Sodium
[2022-03-06 18:15] VITALS: BP 118/48; PULSE 72; RESP 16; TEMP 35.9; O2SAT 95
[2022-03-06 21:15] VITALS: BP 117/55; PULSE 68; RESP 18; TEMP 36; O2SAT 99
[2022-03-06] MEDS: PRAVASTATIN SODIUM 20 MG TABLET PO (21:15)
[2022-03-07] MEDS: oxyCODONE/ACETAMINOPHEN (*CRX) 5-325 MG TABLET 1 TABLET PO ×2 (01:28→16:59)
[2022-03-07 04:39] VITALS: BP 113/49; PULSE 74; RESP 20; TEMP 36; O2SAT 98
[2022-03-07] MEDS: LEVOTHYROXINE SODIUM 88 MCG TABLET PO (06:40)
[2022-03-07] MEDS: PREGABALIN (*CRX) 75 MG CAPSULE 150 MG PO (08:49)
[2022-03-07] MEDS: ASPIRIN 325 MG ENTERIC TABLET PO (08:49)
[2022-03-07] MEDS: PANTOPRAZOLE 40 MG TABLET PO (08:49)
[2022-03-07] MEDS: polyethylene glycoL 3350 17 GM POWD.PACK PO (08:49)
[2022-03-07] MEDS: FLUoxetine HCL 10 MG CAPSULE PO (08:49)
[2022-03-07] MEDS: buPROPion HCL XL (24 HR) 150 MG TABCR PO (08:49)
[2022-03-07] MEDS: FLUoxetine HCL 20 MG CAPSULE PO (08:49)
[2022-03-07] MEDS: SENNA/DOCUSATE SODIUM TABLET 2 TAB PO (08:49)
[2022-03-07] MEDS: oxyCODONE/ACETAMINOPHEN (*CRX) 5-325 MG TABLET 2 TABLET PO (08:57)
[2022-03-07] MEDS: TIZANIDINE HCL 4 MG TABLET PO (08:58)
--- NOTE | 2022-03-07 09:55 | PCOTNOTE ---
Attempted to see patient this am, however patient declined stating, I just finished with physical therapy, and I'm ryanne pooped right now.
[2022-03-07 10:00] VITALS: PULSE 70; RESP 18; TEMP 36.1; O2SAT 97
--- NOTE | 2022-03-07 13:51 | PCOTNOTE ---
Attempted to see patient twice this pm. First attempt, patient was sleeping soundly upon entering and did not disturb. Second attempt, patient was with physical therapy.
[2022-03-07 14:00] VITALS: BP 92/48; PULSE 77; RESP 18; TEMP 36.1; O2SAT 100
--- NOTE | 2022-03-07 16:06 | PM.PNORT ---
Progress Note: A&P Assessment and Plan (1) DJD (degenerative joint disease) of knee: Qualifiers: Osteoarthritis type: primary Laterality: bilateral Qualified Code(s): M17.0 - Bilateral primary osteoarthritis of knee Code(s): M17.10 - Unilateral primary osteoarthritis, unspecified knee Status: Acute Assessment and Plan: POD 2 DOING WELL. OK TO DC HOME F/U IN 3 WEEKS Subjective Subjective Date/Time Seen: 03/07/22 16:06 POD 2 DOING WELL. GOOD PROGRESS WITH PT. NO CALF PAIN Exam Extrem: Other: VSS AFEBRILE DRESSING DRY NV INTACT NEG HOMANS SIGN CALF SOFT NON TENDER Objective Data Vital Signs Vital Signs: Vital Signs - 24 hr 03/06/22 18:15 03/06/22 21:15 03/06/22 21:05 Temperature 35.9 C L 36.0 C L Pulse Rate 72 68 Respiratory Rate 16 18 Blood Pressure 118/48 L 117/55 L Pulse Oximetry 95 99 Oxygen Delivery Room Air 03/07/22 04:39 03/07/22 10:00 03/07/22 08:00 Temperature 36.0 C L 36.1 C L Pulse Rate 74 70 Respiratory Rate 20 18 Blood Pressure 113/49 L Pulse Oximetry 98 97 Oxygen Delivery Room Air 03/07/22 14:00 Temperature 36.1 C L Pulse Rate 77 Respiratory Rate 18 Blood Pressure 92/48 L Pulse Oximetry 100 Oxygen Delivery Intake/Output Intake/Output: Intake & Output 03/04/22 03/05/22 03/06/22 03/07/22 23:59 23:59 23:59 23:59 Intake Total 1040 1370 590 Balance 1040 1370 590 Meds/Results Medications: Active Medications Generic Name Dose Route Start Last Admin Trade Name Freq PRN Reason Stop Dose Admin Acetaminophen 1,000 mg 03/05/22 15:15 Acetaminophen 500 Mg Tablet PO Q6H PRN Pain Rated 1-3 Aspirin 325 mg 03/05/22 21:00 03/07/22 08:49 Aspirin 325 Mg Enteric Tablet PO 325 mg Q12HR JASE Administration Bupropion HCl 150 mg 03/06/22 09:00 03/07/22 08:49 Bupropion Hcl Xl (24 Hr) 150 Mg Tabcr PO 150 mg QAM JASE Administration Diazepam 5 mg 03/05/22 15:15 Diazepam (*Crx) 5 Mg Tablet PO Q8H PRN Spasms Diphenhydramine HCl 25 mg 03/05/22 15:15 Diphenhydramine Hcl Inj 50 Mg/Ml Vial IV PUSH Q6H PRN Itching Fluoxetine HCl 10 mg 03/05/22 21:00 03/07/22 08:49 Fluoxetine Hcl 10 Mg Capsule PO 10 mg Q12HR JASE Administration Fluoxetine HCl 20 mg 03/05/22 21:00 03/07/22 08:49 Fluoxetine Hcl 20 Mg Capsule PO 20 mg Q12H JASE Administration Levothyroxine Sodium 88 mcg 03/06/22 06:30 03/07/22 06:40 Levothyroxine Sodium 88 Mcg Tablet PO 88 mcg DAILY@0630 JASE Administration Naloxone HCl 0.1 mg 03/05/22 15:15 Naloxone Hcl 0.4 Mg/Ml Vial IV PUSH Q2M PRN Opiate Reversal Ondansetron HCl 4 mg 03/05/22 15:15 03/06/22 16:18 Ondansetron Inj 4 Mg/2 Ml Vial IV PUSH 4 mg Q4H PRN Administration Nausea And Vomiting Oxycodone/Acetaminophen 1 tablet 03/05/22 15:15 03/07/22 01:28 Oxycodone/Acetaminophen (*Crx) 5-325 Mg Tablet PO 1 tablet Q4H PRN Administration Pain Rated 4-6 Oxycodone/Acetaminophen 2 tablet 03/05/22 15:15 03/07/22 08:57 Oxycodone/Acetaminophen (*Crx) 5-325 Mg Tablet PO 2 tablet Q6H PRN Administration Pain Rated 7-10 Pantoprazole Sodium 40 mg 03/06/22 09:00 03/07/22 08:49 Pantoprazole 40 Mg Tablet PO 40 mg QAM JASE Administration Polyethylene Glycol 17 gm 03/06/22 09:00 03/07/22 08:49 Polyethylene Glycol 3350 17 Gm Powd.Pack PO 17 gm QAM JASE Administration Pravastatin Sodium 20 mg 03/05/22 21:00 03/06/22 21:15 Pravastatin Sodium 20 Mg Tablet PO 20 mg HS JASE Administration Pregabalin 150 mg 03/05/22 17:00 03/07/22 08:49 Pregabalin (*Crx) 75 Mg Capsule PO 150 mg BID JASE Administration Senna/Docusate Sodium 2 tab 03/05/22 17:00 03/07/22 08:49 Senna/Docusate Sodium Tablet PO 2 tab BID JASE Administration Tizanidine HCl 4 mg 03/05/22 15:15 03/07/22 08:58 Tizanidine Hcl 4 Mg Tablet PO 4 mg HS PRN Administration
--- NOTE | 2022-03-07 16:08 | PM.DS ---
DS: Admitting Diagnosis Discharge Date 03/07/22 Admitting Diagnosis RIGHT KNEE DJD DS: Discharge Diagnosis Discharge Diagnosis (1) DJD (degenerative joint disease) of knee: Qualifiers: Osteoarthritis type: primary Laterality: bilateral Qualified Code(s): M17.0 - Bilateral primary osteoarthritis of knee Code(s): M17.10 - Unilateral primary osteoarthritis, unspecified knee Status: Acute DS: Summary Hospital Course Reason for hospitalization: R TKA Hospital Course: PATIENT WAS ADMITTED S/P RIGHT TOTAL KNEE ARTHROPLASTY FOR POSTOPERATIVE MEDICAL MANAGEMENT, PAIN CONTROL AND MOBILIZATION WITH PHYSICAL AND OCCUPATIONAL THERAPY. THE PATIENT PROGRESSED WELL WITH PT/OT. LABS AND VITALS REMAINED STABLE AND PAIN WELL CONTROLLED. THE PATIENT HAS BEEN CLEARED TO BE DISCHARGED HOME. FOLLOW UP APPOINTMENT SCHEDULED. DISCHARGE INSTRUCTIONS DISCUSSED AT LENGTH WITH THE PATIENT. MEDICATIONS REVIEWED. Status at Discharge Cognitive/behavioral status at discharge: STABLE Functional status at discharge: uses cane/walker Overall status at discharge: patient is progressing back to baseline Time Spent with Patient Time attestation: Total time spent providing and/or coordinating discharge services: DS: Data Procedures/Treatments: R TKA, LEFT KNEE INJECTION Discharge Plan Discharge Attending physician on discharge: García Ray Discharging Clinician: García Ray Anticipated Discharge Date/Time: 03/07/22 16:11 Patient Disposition: Home Health Service Activity: may shower, no driving, follow weight bearing status and other - see discharge instructions Diet: as tolerated Wound Care Instructions: other - see discharge instructions Discharge Instructions: per care coordination, [facility] arranged for RN, PT/OT evaluations and treatments. [facility] will contact you for first visit arrangements. [facility] can be reached at [phone]. GARCÍA RAY M.D. [facility] [address] [address] [address] [place] [address] POST OPERATIVE DISCHARGE INSTRUCTIONS FOLLOWING TOTAL KNEE REPLACEMENT SURGERY ? Your dressing will be changed prior to your discharge. You will be sent home with one additional dressing to be changed on post op day 7 by the home health RN. Your suzette will be removed on the 14th day after surgery and steri-strips will be placed. Please practice good hand hygiene and do not touch your incision in order to prevent infection. ? You may shower with your dressing but do not submerge in a bath tub. ? Do not drive or operate machinery until you are released by Dr. Ray. ? Do not walk without a walker for any reason until you are released by Dr. Ray. ? Continue to use your ice machine. Please use a towel or pillow case to protect your skin before applying your ice machine. ? Do NOT place a pillow under your knee. You may use a pillow from the calf down if needed. This will prevent a flexion contracture postoperatively. ? You may begin use of your CPM machine at home if you have been given one pre-operatively. DO NOT USE WHILE YOU ARE SLEEPING. ? Your first post op appointment was sent to you via mail preoperatively. If you have any questions or are unable to make your appointment, please contact our office for scheduling questions. ? Your medications have been sent to your pharmacy. You have been sent home with pain medication. We have also sent you with a stool softener as narcotics can cause constipation. Please keep this in mind during your postoperative recovery. If you are not experiencing regular bowel movements, please contact our office for further instruction. ? Please contact our office with any questions/concerns regarding your knee at [phone]. TAKE 2 ASPIRIN (325 MG) PER DAY FOR 3 WEEKS FOR BLOOD CLOT PREVENTION Patient Instructions: Antibiotic Form Patient [place]
== END 2022-03-07 17:30 | disposition home health service (06) ==
LOC: ANHSURGERY 03-07 11:17 → ANH2MED 03-07 11:17
PROVIDERS: Admitting Provider Orthopaedic Surgery; PCP Family Medicine; Visit Provider Orthopaedic Surgery
PROC: (CPT 27447; principal; 2022-03-05 10:30)
DX: M17.0 Bilateral primary osteoarthritis of knee (principal); G89.18 Other acute postprocedural pain; F32.A Depression, unspecified; K21.9 Gastro-esophageal reflux disease without esophagitis; E78.00 Pure hypercholesterolemia, unspecified; E03.9 Hypothyroidism, unspecified; G47.33 Obstructive sleep apnea (adult) (pediatric); M81.0 Age-related osteoporosis without current pathological fracture; G40.89 Other seizures; E66.9 Obesity, unspecified; Z68.29 Body mass index [BMI] 29.0-29.9, adult; Z99.89 Dependence on other enabling machines and devices; Z79.1 Long term (current) use of non-steroidal anti-inflammatories (NSAID); Z79.899 Other long term (current) drug therapy; Z82.49 Family history of ischemic heart disease and other diseases of the circulatory system; Z84.89 Family history of other specified conditions
CPT/HCPCS: 27447; 20610; 64447; 36415; 73560; 80048; 80307; 81003; 82040; 83036; 85025; 85610; 85730; 86850; 86900; 86901; 87081; 93005; 97110; 97116; 97161; 97165; 97535; A9270; C1713; C1776; G0378; J0171; J0690; J1040; J1170; J1885; J2250; J2270; J2405; J2795; J3010; J7030; J7120

== ENCOUNTER 2023-08-07 12:07 | Outpatient (CLI) | payer MEDICARE, SELFPAY ==
--- NOTE | ~2023-08-07 | XR_ITS ---
XR lumbar spine 6V w bending DATE: 08/07/2023 12:40 INDICATION: Bilateral low back pain for several years. No injury. TECHNIQUE: AP, bilateral oblique, lateral, coned lateral lumbosacral views and flexion and extension weightbearing lateral views COMPARISON: None FINDINGS: Diffuse osteopenia. Mild rotatory levoscoliosis. Normal alignment of the lumbar vertebrae. No fracture or bone destruction, spondylolysis, spondylolis thesis or instability is detected. There is multilevel degenerative disc disease, most prominent at L2-3, moderate at L3-4, mild at L1-2 and L4-5. L5-S1 interspace is well preserved. The sacroiliac joints are intact. Status post cholecystectomy. IMPRESSION: Multilevel degenerative disc disease, most prominent at L2-3 Reviewed, dictated and finalized at location B. HT TESTER
== END 2023-08-07 12:08 | disposition home or self-care (01) ==
PROVIDERS: PCP Family Medicine; Visit Provider Family Medicine
DX: M51.36 Other intervertebral disc degeneration, lumbar region (principal)
CPT/HCPCS: 72114

== ENCOUNTER 2023-09-11 09:59 | Outpatient (CLI) | payer MEDICARE, SELFPAY ==
--- NOTE | ~2023-09-11 | MR_ITS ---
MRI of the brain Clinical History: Visual hallucinations Technique: Axial and sagittal T1-weighted images were acquired. These were followed by axial T2-weigh diane, diffusion weighted, gradient, and FLAIR images. Findings: No acute infarct, intracranial hemorrhage, mass lesion identified. No abnormal signal seen in the brain parenchyma. Ventricles and subarachnoid spaces are unremarkable. Orbits are unremarkable. Paranasal sinuses and m astoid air cells are clear. Sagittal midline structures are intact. IMPRESSION: Unremarkable exam. Reviewed, dictated and finalized at location M. H TESTER QUALITY IMPRESSION: Unremarkable exam.
== END 2023-09-11 10:00 | disposition home or self-care (01) ==
PROVIDERS: PCP Family Medicine; Visit Provider Family Medicine
DX: R44.1 Visual hallucinations (principal)
CPT/HCPCS: 70551

== ENCOUNTER 2024-01-18 11:16 | Emergency (ER) | payer MEDICARE, SELFPAY ==
--- NOTE | ~2024-01-18 | XR_ITS ---
XR ribs LT 2V w CXR 2V Ordering provider: Mihir Flanagan MD History: . Rib fracture 11 days ago heard pop and pain worsen thursday . Comparison: September 16, 2017 FINDINGS: BONES: No acute rib fracture. MEDIASTINUM: The cardiac silhouette is not enlarged. LUNGS: No infiltrates, effusions or pneumothorax. OTHER: No free air under the diaphragm. IMPRESSION: 1. No acute osseous abnormality left ribs and chest. 2. No acute cardiopulmonary findings. Reviewed, dictated and finalized at location A.
[2024-01-18 11:31] VITALS: BP 147/83; PULSE 67; RESP 18; TEMP 36.8; O2SAT 96
--- NOTE | 2024-01-18 12:15 | ED.BACK ---
HPI - Back Pain/Injury General Chief Complaint: Back Pain/Injury Stated Complaint: left sided back pain Time Seen by Provider: 01/18/24 12:10 Source: patient Mode of arrival: ambulatory History of Present Illness HPI Narrative: 68 years old white female who began STEMI toilet on December 23 causing left lower chest pain, a urgent care, diagnosis of to 2 rib fracture on the left side. Yesterday was straining for constipation felt click with increasing at the level of the pain on the left side the chest. Patient is wondering with ago. She denies any difficulty breathing or shortness of breath. Pain increases with any movement including trying to stand, to trying to have a bowel movement, coughing or positioning Related Data Home Medications Medication Instructions Recorded Confirmed Lactobacillus 1 cap PO HS 02/21/22 08/31/23 acidophilus-Bifidobac.animalis 2.5 billion cell capsule (Daily Probiotic) acetaminophen 650 mg 325 mg PO HS 02/21/22 08/31/23 tablet,extended release cholecalciferol (vitamin D3) 50 50 mcg PO DAILY 08/31/23 08/31/23 mcg (2,000 unit) capsule Allergies Allergy/AdvReac Type Severity Reaction Status Date / Time adhesive Allergy Mild RASH Verified 01/18/24 11:35 trazodone Allergy Unknown BRAIN Verified 01/18/24 11:35 SEIZURES oxycodone AdvReac Intermediate Swelling Verified 01/18/24 11:35 Review of Systems Review of Systems: All systems reviewed & are unremarkable except as noted in HPI and below PMFSH Past Medical History Medical History Ataxia BMI 29.0-29.9,adult BMI 31.0-31.9,adult BMI 32.0-32.9,adult BMI greater than 30 Cataracts, bilateral Changing skin lesion Claustrophobia Colon cancer screening Depression Dry skin Gastroesophageal reflux disease History of cough History of ear pain History of high cholesterol History of paranasal sinus congestion Hypothyroidism Lumbar pain Mass of abdomen MEHRDAD on CPAP MEHRDAD on CPAP Osteoporosis Overweight with body mass index (BMI) of 28 to 28.9 in adult Pelvic pain Postoperative stitch abscess Right hip pain RLQ abdominal pain Screening, lipid Skin lesion Thoracic back pain Ulcer, colon Vaginal dryness Visual hallucinations Surgical History Surgical History H/O arthroscopic knee surgery H/O: hysterectomy History of cholecystectomy S/P total knee arthroplasty Family History Family History Father Hypertension Cerebrovascular accident Mother Cerebrovascular accident Sibling Acute myocardial infarction Seizures Diabetes mellitus Other Depression Family history of alcoholism Family history of coronary artery disease Family history of malignant neoplasm of brain Family history of mental disorder Family history of seizure disorder Social History Social History Smoking status: Never smoker Second hand tobacco smoke exposure: No Alcohol intake: current Substance use: former Substance use type: marijuana Other substance usage details: CBD gummies Lack of Transportation: No Lack of Food: Never True Current Housing: I Have Housing Concerned About Future Housing: No Difficulty Paying Gas/Electric Bills: No Difficulty Paying for Meds: No Currently Unemployed: No Education: High School Diploma/GED Living arrangements: with family Additional living arrangements comments: Occupation/Education: retired Gender identity (if verbalized by the patient): Female Sexual Orientation (if Verbalized by the Patient): Straight or Heterosexual Spiritual care concerns: No Agree to blood products: Yes Exam Narrative: General appearance: Well-developed, well-nourished Skin: Normal color Head: Normocephalic, nontraumatic Eyes: Clear conjunctiv
[2024-01-18] MEDS: ACETAMINOPHEN 325 MG TABLET 650 MG PO (12:42)
[2024-01-18] MEDS: IBUPROFEN 600 MG TABLET PO (12:43)
--- NOTE | 2024-01-18 14:20 | ECG_ITS ---
Test Date: 2024-01-18 14:35:16 Measurements Intervals Manning Rate: 60 P: 34 AL: 206 QRS: 16 QRSD: 72 T: 30 QT: 418 QTc: 418 Interpretive Statements SINUS RHYTHM BASELINE ARTIFACT- I, II, III, AVF, V1 NORMAL ECG No previous ECG available for comparison Electronically Signed On 01-18-2024 15:17:04 CDT by Brenton Verdugo D.O.
[2024-01-18 14:42] LABS: Basophils Percent Auto 0.5 % (0.2-1.2); Eosinophils Percent Auto 0.2 % (0-4.4); Hematocrit 41.4 % (37.0-47.0); Hemoglobin 13.3 g/dL (12.0-15.0); Immature Granulocyte Absolute 0.06 K/mm3 (0.00-0.031); Immature Granulocyte Percent A 0.7 % (0-0.5); Lymphocytes Absolute Auto 1.84 K/mm3 (0.9-3.2); Lymphocytes Percent Auto 21.5 % (18.3-44.2); Mean Corpuscular HGB Conc 32.1 g/dl (32-36); Mean Corpuscular Hemoglobin 31.1 pg (26-34); Mean Platelet Volume 10.3 fl (7.4-10.4); Monocytes Absolute Auto 0.7 K/mm3 (0.1-0.6); Monocytes Percent Auto 8.6 % (2.6-8.5); Neutrophils Absolute Auto 5.9 K/mm3 (1.3-6.7); Neutrophils Percent Auto 68.5 % (45.5-73.1); Platelet Count Result 255 k/mm3 (150-375); Red Blood Count 4.27 M/mm3 (4.2-5.4); Red Cell Distribution Width 13.7 % (11.5-14.5); White Blood Count 8.6 K/mm3 (4.5-10.0)
[2024-01-18 14:49] LABS: Appearance Urine Clear (Clear); Bacteria Urine None Seen /hpf; Bilirubin Urine Negative (Negative); Blood Urine Negative (Negative); Color Urine Yellow (Yellow); Glucose Urine UA Negative (Negative); Ketones Urine Negative (Negative); Leukocyte Esterase Ur 1+ LEU/UL (Negative); Nitrate Urine Negative (Negative); Non Pathogenic Casts 0-2; Protein Urine Negative (Negative); RBC Urine 0-2 /hpf (0-2); Specific Grav Ur 1.016 (1.001-1.035); Squamous Epithelial Cell Urine None Seen /hpf (Few); Urobilinogen Urine 0.2 mg/dL (<2.0); WBC Urine 21-50 /hpf (0-3)
[2024-01-18 14:52] LABS: Add Urine Microscopic? YES
[2024-01-18 14:53] LABS: INR 0.9; Prothrombin Time 12.9 Seconds (11.1-14.7)
[2024-01-18 14:54] LABS: Partial Thromboplastin Time 23.2 Seconds (22.3-36.8)
[2024-01-18 14:55] LABS: Alanine Aminotransferase 25 U/L (6-35); Albumin Level 4.7 g/dL (3.5-5.1); Alkaline Phosphatase 94 U/L (38-126); Anion Gap 7 mmol/L (4-12); Aspartate Amino Transferase 27 U/L (14-36); Bilirubin,Total 0.6 mg/dL (0.2-1.3); Blood Urea Nitrogen 19 mg/dL (7-17); Calcium 9.5 mg/dL (8.4-10.2); Carbon Dioxide 28 mmol/L (22-30); Chloride 103 mmol/L (98-107); Estimated Glomerular Filt Rate > 60; Glucose 96 mg/dL (65-110); Lipase 96 U/L (23-300); Potassium 4.5 mmol/L (3.4-5.0); Sodium 138 mmol/L (137-145)
[2024-01-18 15:03] LABS: D Dimer 0.33 ug/mL (<0.48)
[2024-01-18 15:06] LABS: NT Pro B Type Natriuretic Pept 443 pg/mL (19.9-100); Troponin I < 0.012 ng/mL (0.000-0.034)
[2024-01-18 16:28] VITALS: BP 142/87; PULSE 72; RESP 18; O2SAT 98
== END 2024-01-18 16:29 | disposition home or self-care (01) ==
PROVIDERS: Emergency Provider Emergency Medicine; PCP Family Medicine
DX: R07.89 Other chest pain (principal); E03.9 Hypothyroidism, unspecified
CPT/HCPCS: 36415; 71046; 71100; 80053; 81001; 83690; 83880; 84484; 85025; 85380; 85610; 85730; 87086; 93005; 99284; A9270

== ENCOUNTER 2024-04-29 16:20 | Emergency (ER) | payer MEDICARE, SELFPAY ==
[2024-04-29 16:35] VITALS: BP 135/73; PULSE 76; RESP 18; TEMP 36.8; O2SAT 98
--- NOTE | 2024-04-29 16:52 | ED.GENADULT ---
HPI - General Adult General Chief complaint: Dental/Oral Stated complaint: Toothache Time Seen by Provider: 04/29/24 16:52 Source: patient Mode of arrival: ambulatory Limitations: no limitations History of Present Illness HPI narrative: 68-year-old white female had a dental implant placed 2 days ago at her dentist left upper premolar area. She got premedicated with amoxicillin now is continuing amoxicillin afterwards because she has had a prosthetic right knee. Yesterday her cheek started to swell so she called her dentist who told her increase her amoxicillin from 500 mg 3 times a day to 4 times a day. She has had a little bit more swelling today so she came to the emergency room for some IV antibiotics. Denies any fever she has hurts sometimes when she eats. Otherwise denies any chills rash or itching other swelling lumps or bumps problems breathing nausea vomiting or any other complaints. She is supposed to finish the amoxicillin by taking 500 mg 4 times a day for 10 days Related Data Home Medications Medication Instructions Recorded Confirmed Lactobacillus 1 cap PO HS 02/21/22 04/29/24 acidophilus-Bifidobac.animalis 2.5 billion cell capsule (Daily Probiotic) cholecalciferol (vitamin D3) 50 50 mcg PO DAILY 08/31/23 04/29/24 mcg (2,000 unit) capsule acetaminophen 500 mg tablet 500 mg PO Q8H PRN Pain (Scale 02/16/24 04/29/24 Score 4-6) ibuprofen 200 mg tablet 400 mg PO Q8H PRN Pain (Scale 02/16/24 04/29/24 Score 4-6) Allergies Allergy/AdvReac Type Severity Reaction Status Date / Time adhesive Allergy Mild RASH Verified 04/29/24 16:46 trazodone Allergy Unknown BRAIN Verified 04/29/24 16:46 SEIZURES oxycodone AdvReac Intermediate Swelling Verified 04/29/24 16:46 Review of Systems Review of Systems: All systems reviewed & are unremarkable except as noted in HPI and below PMFSH Past Medical History Medical History Ataxia BMI 29.0-29.9,adult BMI 31.0-31.9,adult BMI 32.0-32.9,adult BMI greater than 30 Cataracts, bilateral Changing skin lesion Claustrophobia Colon cancer screening Depression Dry skin Gastroesophageal reflux disease History of cough History of ear pain History of high cholesterol History of paranasal sinus congestion Hypothyroidism Lumbar pain Mass of abdomen MEHRDAD on CPAP MEHRDAD on CPAP Osteoporosis Overweight with body mass index (BMI) of 28 to 28.9 in adult Pelvic pain Postoperative stitch abscess Rib pain on left side Right hip pain RLQ abdominal pain Screening, lipid Skin lesion Thoracic back pain Ulcer, colon Vaginal dryness Visual hallucinations Surgical History Surgical History H/O arthroscopic knee surgery H/O: hysterectomy History of cholecystectomy S/P total knee arthroplasty Family History Family History Father Hypertension Cerebrovascular accident Mother Cerebrovascular accident Sibling Acute myocardial infarction Seizures Diabetes mellitus Other Depression Family history of alcoholism Family history of coronary artery disease Family history of malignant neoplasm of brain Family history of mental disorder Family history of seizure disorder Social History Social History Smoking status: Never smoker Second hand tobacco smoke exposure: No Alcohol intake: current Substance use: former Substance use type: marijuana Other substance usage details: CBD gummies Lack of Transportation: No Lack of Food: Never True Current Housing: I Have Housing Concerned About Future Housing: No Difficulty Paying Gas/Electric Bills: No Difficulty Paying for Meds: No Currently Unemployed: No Education: High School Diploma/GED Living arrangements: with family Additional living
[2024-04-29] MEDS: cefTRIAXone 1 GM, LIDOCAINE HCL 1% LOCAL INJ 2.1 ML IM (17:25)
[2024-04-29 17:45] VITALS: BP 128/72; PULSE 68; RESP 18; O2SAT 99
== END 2024-04-29 17:45 | disposition home or self-care (01) ==
PROVIDERS: Emergency Provider Emergency Medicine; PCP Family Medicine
DX: K04.7 Periapical abscess without sinus (principal); E03.9 Hypothyroidism, unspecified; Z99.81 Dependence on supplemental oxygen; Z79.899 Other long term (current) drug therapy; Z79.1 Long term (current) use of non-steroidal anti-inflammatories (NSAID)
CPT/HCPCS: 96372; 99283; J0696; J2003

== ENCOUNTER 2025-03-28 00:25 | Day surgery (SDC) | payer MEDICARE, SELFPAY ==
[2025-03-22 12:35] VITALS: BMI 29.2
--- OUTSIDE RECORDS SUMMARY | 2025-03-28 00:27 | XMS_ITS | Encounter Summary ---
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
--- OUTSIDE RECORDS SUMMARY | 2025-03-28 00:27 | XMS_ITS | Clinical Summary ---
Author Organization [facility] Address [address] [place] [address] Care Team Providers Care Tire Buffer Name Role Phone Kip Jackson MD Primary Care Provider [phone] Allergies Active Allergy Reactions Criticality Noted Date Comments Tape Rash Low 10/22/2017 Trazodone Seizure High 10/22/2017 Medications fluoxetine 40 MG capsuleIndications :depression Take 40 mg by mouth daily. Indications: depression Take 2 tablets once daily for a total of 80 mg. 10/16/19 18 Active fluticasone propionate 50 MCG/ACT nasal spray INHALE 2 SPRAYS IN EACH NOSTRIL QD 2 07/15/20 17 Active pravastatin 20 MG tablet TAKE1 TAB PO DAILY 11 10/03/19 18 Active pantoprazole 40 MG tabletIndications: GERD Take 40 mg by mouth daily. Indications: GERD Active probiotic capsuleIndications :GI HEALTH Take 1 capsule by mouth nightly at bedtime. Indications: GI HEALTH Active cephALEXin 500 MG capsule Take 500 mg by mouth 2 (two) times daily. Antibiotic for surgery post op 0 10/20/19 18 Active neomycin-polymyxin -dexamethasone 3.5-06700-8.[address] 1 Application into the right eye 3 (three) times daily. Do not use until dr. Fleming instructs 0 10/20/19 18 Active omeprazole 40 MG capsule Take 40 mg by mouth nightly at bedtime. gerd Active ondansetron 8 MG disintegrating tablet Take 8 mg by mouth as needed for Nausea. Nausea 0 10/20/19 18 Active levothyroxine 100 MCG tablet Take 100 mcg by mouth every morning. Thyroid Active pregabalin 100 MG capsule Take 100 mg by mouth 2 (two) times daily. Active hydrocodone-acetam inophen 5-325 MG tablet Take 1-2 tablets by mouth every 4 (four) hours as needed for Pain. 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 Gender Identity Not on file Sexual Orientation Not on file Last Filed Vital Signs Vital Sign Reading Time Taken Comments Blood Pressure 116/73 10/28/2017 9:15 AM CDT Pulse 69 10/28/2017 9:15 AM CDT Temperature 36.3 C (97.3 F) 10/28/2017 8:23 AM CDT Respiratory Rate 16 10/28/2017 9:15 AM CDT Oxygen Saturation 95% 10/28/2017 9:15 AM CDT Inhaled Oxygen Concentration - - Weight 90.7 kg (200 lb) 10/16/2017 12:01 AM CDT Height 165.1 cm (5' 5) 10/16/2017 12:01 AM CDT Body Mass Index 33.28 10/16/2017 12:01 AM CDT Plan of Treatment Health Maintenance Due Date Last Done Comments Colorectal Cancer Screening Colonoscopy (10 Years) 1955 Hepatitis C 1973 DTaP, Tdap and Td Vaccines ( 1 - Tdap) 1974 Mammogram Screening 1995 Pneumococcal Vaccine: 50+ Ye ars (1 of 1 - PCV) 2005 Zoster Vaccines (1 of 2) 2005 Dexa Scan (General) 2020 COVID-19 Vaccine ( - 2023-2 5 season) 2025 RSV Immunization or 60+ Years (1 - 1-dose 75+ series) 2030 Meningococcal B Vaccine Aged Out No l onger eligible based on patient's age to complete this topic Meningococcal Vaccine Aged Out No chano angelica eligible based on patient's age to complete this topic RSV Immunizations Under 20 Months Aged Out No longer eligible based on patient's age to complete this topic Insurance [employer] Care Teams Tire Buffer Relationship Specialty Start Date End Date Kip Jackson MD [address] [place] [address] PCP - General FAMILY PRACTICE 10/21/17
--- OUTSIDE RECORDS SUMMARY | 2025-03-28 00:27 | XMS_ITS | Clinical Summary ---
Author Organization [facility] Address [address] [place] [address] Care Team Providers Care Electric Blasting Cap Assembler Name Role Phone Kip Jackson MD Primary Care Provider [phone] Source Comments [facility],non-owned Affiliates and Associated Physician Practices is amultiple site organization consisting of ambulatory clinics and hospital sitesin [place], [place], [place] and [place]. This disclosure is being madepursuant to the Care Everywhere program and may not contain all information available regarding this patient. Last updated 18.[facility] Allergies No known active allergies Medications * Be aware that medications may not be up to date on this document. Alwaysverify current medications with the patient. levothyroxine (SYNTHROID) 100 MCG tablet Take 100 mcg by mouth daily before breakfast Active FLUoxetine (PROZAC) 40 MG capsule Take 80 mg by mouth once daily Active pregabalin (LYRICA) 100 MG capsule Take 100 mg by mouth 2 times daily Active Probiotic Product (PROBIOTIC ADVANCED PO) Active Other For cholesterol; does not remember name Active omeprazole (PRILOSEC) 40 MG capsule Take 40 mg by mouth daily before breakfast Active raNITIdine (ZANTAC) 150 MG capsule Take 150 mg by mouth 2 times daily Active Family History Medical History Relation Name Comments CAD (Coronary Artery Disease) Brother CVA Father Diabetes - Type 1 Father Diabetes - Type 1 Maternal Grandmother CVA Mother Diabetes - Type 1 Paternal Grandmother Relation Name Status Comments Brother Father Maternal Grandmother Mother Paternal Grandmother Social History Tobacco Use Types Packs/Day Years Used Date Smoking Tobacco: Never Smokeless Tobacco: Never Alcohol Use Standard Drinks/Week Comments Yes 1 (1 standard drink = 0.6 oz pur e alcohol) Comments Unknown Sex and Gender Information Value Date Recorded Sex Assigned at Not on file Legal Sex Female 10:25 AM CDT Gender Identity Not on file Sexual Orientation Not on file Last Filed Vital Signs Vital Sign Reading Time Taken Comments Blood Pressure - - Pulse - - Temperature - - Respiratory Rate - - Oxygen Saturation - - Inhaled Oxygen Concentration - - Weight 90.7 kg (200 lb) 01/15/2017 10:21 AM CDT Height 165.1 cm (5' 5) 01/15/2017 10:21 AM CDT Body Mass Index 33.28 01/15/2017 10:21 AM CDT Plan of Treatment Health Maintenance Due Date Last Done Comments BONE DENSITY TESTING 1955 COLOGUARD (AGES 45-75) - COL ON CA SCREENING 1955 COLON MONITORING 1955 COLONOSCOPY - COLON CA SCREENING [address] CT COLONOGRAPHY - COLON CA SCREENING 1955 Colorectal Cancer Screening 1955 FIT - COLON CA SCREENING 1955 FLEX SIG - COLON CA SCREENING 1955 LIPID TESTING 1955 MAMMOGRAM 1955 HEPATITIS C SCREENING 08/28/1973 DTAP/TDAP/TD VACCINES (1 - Tdap) 1974 PNEUMOCOCCAL VACCINE 50+ (1 of 1 - PCV) 2005 ZOSTER VACCINE (1 of 2) 2005 DEPRESSION SCREENING 07/20/2024 COVID-19 VACCINE (1 - 2023-2 5 season) 2025 INFLUENZA VACCINE (#1) 2025 Respiratory Syncytial Virus (RSV) Vaccine Pt: or over 60 yrs (1 - 1-dose 75+ series) 2030 HEPATITIS B VACCINE Aged Out No longe r eligible based on patient's age to complete this topic HIB VACCINE Aged Out No longer eligi ble based on patient's age to complete this topic HPV VACCINE Aged Out No longer eligi ble based on patient's age to complete this topic MENINGOCOCCAL (Group B) VACC INE SHARED DECISION-MAKING Aged Out No longer eligibl e based on patient's age to complete this topic MENINGOCOCCAL GROUPS A/C/Y/W VACCINE Aged Out No longer eligible b ased on patient's age to complete this topic [place] [id number] [place]ETNA [place] [id number] AETNA Care Teams Electric Blasting Cap Assembler Relationship Specialty Start Date End Date Kip Jackson MD [address] [place] [address] PCP - General Family Medicine 01/14/17
[2025-03-28 07:38] VITALS: BP 123/90; PULSE 78; RESP 16; TEMP 35.9; O2SAT 97; BMI 29.7
[2025-03-28] MEDS: LACTATED RINGERS 1,000 ML 150 ML IV CONT (07:59)
--- NOTE | 2025-03-28 08:11 | P.PNAN_ITS ---
Anes - Initial Pre Proc Eval Procedure: Operation Date: 03/28/25 09:00 Proposed Procedures p Screening Colonoscopy - Woody Mathur MD Date/Time: 03/28/25 08:11 Surgeon: Woody Mathur MD Pre Op Diagnosis: Screening Patient Data Age: 69 Gender: F Height: 1.65 m Weight: 81 kg Last Vital Signs Temp 35.9 C L 03/28/25 07:38 Pulse 78 03/28/25 07:38 Resp 16 03/28/25 07:38 BP 123/90 03/28/25 07:38 Pulse Ox 97 03/28/25 07:38 O2 Del Method Room Air 03/28/25 07:38 Allergies Allergy/AdvReac Type Severity Reaction Status Date / Time adhesive Allergy Mild RASH Verified 03/28/25 07:44 trazodone Allergy Unknown BRAIN Verified 03/28/25 07:44 SEIZURES oxycodone AdvReac Intermediate Swelling Verified 03/28/25 07:44 Home Medications ?Medication ?Instructions ?Recorded ?Confirmed ?Type Lactobacillus 1 cap PO HS 02/21/22 5 History acidophilus-Bifidobac.animalis 2.5 billion cell capsule (Daily Probiotic) acetaminophen 500 mg tablet 500 mg PO Q8H PRN Pain (Sc anneliese 02/16/24 03/22/25 History Score 4-6) ibuprofen 200 mg tablet 400 mg PO Q8H PRN Pain (Scal e 02/16/24 03/22/25 History Score 4-6) bupropion HCl 150 mg 24 hr tablet, See Rx Instructions .Route 06/15/24 03/28/25 Rx extended release .COMPLEX #90 tabs pravastatin 20 mg tablet See Rx Instructions .Route 1 08/15/23 03/28/25 Rx .COMPLEX #90 tabs levothyroxine 88 mcg tablet 88 mcg PO DAILY #90 tabs 0 08/16/24 03/28/25 Rx amoxicillin 500 mg capsule 500 mg PO ONCE #4 caps 12/1803/22/25 Rx famotidine 40 mg tablet 40 mg PO DAILY #30 tabs 02/1703/28/25 Rx fluoxetine 20 mg capsule See Rx Instructions .Route 0 03/04/25 03/28/25 Rx .COMPLEX #180 caps pregabalin 150 mg capsule 150 mg PO BID #180 caps 08/1303/28/25 Rx pantoprazole 40 mg tablet,delayed 40 mg PO QAM 5 03/28/25 History release Patient hx anesthesia problems: none Family hx anesthesia problems: none Results Review: All pre-operative results and documents have been reviewed as part of the pre- operative evaluation. [facility] Past Medical History Medical History Rib pain on left side Claustrophobia Thoracic back pain Visual hallucinations Overweight with body mass index (BMI) of 28 to 28.9 in adult Ataxia Lumbar pain Dry skin Vaginal dryness Cataracts, bilateral BMI 29.0-29.9,adult Postoperative stitch abscess BMI greater than 30 BMI 31.0-31.9,adult Osteoporosis History of high cholesterol History of cough History of paranasal sinus congestion History of ear pain Skin lesion Right hip pain BMI 32.0-32.9,adult Changing skin lesion MEHRDAD on CPAP RLQ abdominal pain Ulcer, colon Colon cancer screening Pelvic pain Screening, lipid Mass of abdomen Depression Gastroesophageal reflux disease Hypothyroidism MEHRDAD on CPAP Surgical History Surgical History S/P total knee arthroplasty H/O: hysterectomy History of cholecystectomy H/O arthroscopic knee surgery Family History Family History Father Hypertension Cerebrovascular accident Mother Cerebrovascular accident Sibling Acute myocardial infarction Seizures Diabetes mellitus Other Depression Family history of alcoholism Family history of coronary artery disease Family history of malignant neoplasm of brain Family history of mental disorder Family history of seizure disorder Social History Social History Smoking status: Never smoker Second hand tobacco smoke exposure: No Alcohol intake: never Substance use: never Substance use type: does not use Other substance usage details: CBD gummies Lack of Transportation: No Lack of Food: Never True Current Housing: I Have Housing Concerned About Future Housing: No Difficulty Paying Gas/Electric Bills: No Difficulty Paying for Meds: No Currently Unemployed: No Education: High School Diploma/GED Living arrangements: with family Additional living arrangements comments: Occupation/Education: retired Gender identity (if verbalized by the patient): Female Sexual Orientation (if Verbalized by the Patient): Straight or Heterosexual Spiritual care concerns: No Agree to blood products: Yes Anes - Eval Final PreProcedure Day of Procedure 03/28/25 08:11 Patient weight: obese Heart: regular rate and rhythm Lungs: clear to auscultation Airway: Mallampati scale class II Neurological: alert and oriented Last oral intake: >/= 8 hours ASA classification: III Emergent: no Anesthetic plan: proceed Anesthesia type and monitoring: general GIVS and standard monitoring Results Review: All pre-operative results and documents have been reviewed as part of the pre- operative evaluation. Informed Consent: The patient's anesthetic plan and its attendant risks and benefits were discussed with the patient/family/POA. Questions were solicited and answers provided to the satisfaction of the patient/family/POA.
--- NOTE | 2025-03-28 08:32 | PM.HPGS ---
History of Present Illness History of Present Illness Consent: Risks, benefits, and alternatives have been discussed and questions answered. Patient agrees to proceed with procedure. Chief complaint: Screening Narrative: Gretchen Gibson is a 69 year old female here for screening colonoscopy, last one 5 year ago- had small benign ulcer in cecum Review of Systems Review of Systems: All systems reviewed & are unremarkable except as noted in HPI and below PMFSH Past Medical History Medical History Rib pain on left side Claustrophobia Thoracic back pain Visual hallucinations Overweight with body mass index (BMI) of 28 to 28.9 in adult Ataxia Lumbar pain Dry skin Vaginal dryness Cataracts, bilateral BMI 29.0-29.9,adult Postoperative stitch abscess BMI greater than 30 BMI 31.0-31.9,adult Osteoporosis History of high cholesterol History of cough History of paranasal sinus congestion History of ear pain Skin lesion Right hip pain BMI 32.0-32.9,adult Changing skin lesion MEHRDAD on CPAP RLQ abdominal pain Ulcer, colon Colon cancer screening Pelvic pain Screening, lipid Mass of abdomen Depression Gastroesophageal reflux disease Hypothyroidism MEHRDAD on CPAP Surgical History Surgical History S/P total knee arthroplasty H/O: hysterectomy History of cholecystectomy H/O arthroscopic knee surgery Family History Family History Father Hypertension Cerebrovascular accident Mother Cerebrovascular accident Sibling Acute myocardial infarction Seizures Diabetes mellitus Other Depression Family history of alcoholism Family history of coronary artery disease Family history of malignant neoplasm of brain Family history of mental disorder Family history of seizure disorder Social History Social History Smoking status: Never smoker Second hand tobacco smoke exposure: No Alcohol intake: never Substance use: never Substance use type: does not use Other substance usage details: CBD gummies Lack of Transportation: No Lack of Food: Never True Current Housing: I Have Housing Concerned About Future Housing: No Difficulty Paying Gas/Electric Bills: No Difficulty Paying for Meds: No Currently Unemployed: No Education: High School Diploma/GED Living arrangements: with family Additional living arrangements comments: Occupation/Education: retired Gender identity (if verbalized by the patient): Female Sexual Orientation (if Verbalized by the Patient): Straight or Heterosexual Spiritual care concerns: No Agree to blood products: Yes Meds Home Medications and Allergies Home Medications ?Medication ?Instructions ?Recorded ?Confirmed ?Type Lactobacillus 1 cap PO HS 02/21/22 03/28/25 History acidophilus-Bifidobac.animalis 2.5 billion cell capsule (Daily Probiotic) acetaminophen 500 mg tablet 500 mg PO Q8H PRN Pain (Scale 02/16/24 03/22/25 History Score 4-6) ibuprofen 200 mg tablet 400 mg PO Q8H PRN Pain (Scale 02/16/24 03/22/25 History Score 4-6) bupropion HCl 150 mg 24 hr tablet, See Rx Instructions .Route 06/15/24 03/28/25 Rx extended release .COMPLEX #90 tabs pravastatin 20 mg tablet See Rx Instructions .Route 06/15/24 03/28/25 Rx .COMPLEX #90 tabs levothyroxine 88 mcg tablet 88 mcg PO DAILY #90 tabs 08/16/24 03/28/25 Rx amoxicillin 500 mg capsule 500 mg PO ONCE #4 caps 01/05/25 03/22/25 Rx famotidine 40 mg tablet 40 mg PO DAILY #30 tabs 03/01/25 03/28/25 Rx fluoxetine 20 mg capsule See Rx Instructions .Route 03/04/25 03/28/25 Rx .COMPLEX #180 caps pregabalin 150 mg capsule 150 mg PO BID #180 caps 03/20/25 03/28/25 Rx pantoprazole 40 mg tablet,delayed 40 mg PO QAM 03/22/25 03/28/25 History release Allergies Allergy/AdvReac Type Severity Reaction Status Date / Time adhesive Allergy Mild RASH Verified 03/28/25 07:44 trazodone Allergy Unknown BRAIN Verified 03/28/25 07:44 SEIZURES oxycodone AdvReac Intermediate Swelling Verified 03/28/25 07:44 Vital Signs Vital Signs - 24 hr 03/28/25 07:38 Temperature 96.7 F L Pulse Rate 78 Respiratory Rate 16 Blood Pressure 123/90 Pulse Oximetry 97 Oxygen Delivery Room Air Exam Const: General: comfortable and no acute distress HENMT: Face/Nose/Sinus: Normal nares present Eyes: General: appearance normal, both eyes and all related structures Neck: Neck: no JVD Resp: Auscultation: clear to auscultation bilaterally Cardio: Rate: regular rate Rhythm: regular rhythm GI: Inspection: non-distended GI Palp: Yes Soft to palpation Skin: General skin exam: normal color Neuro: Speech: normal speech Extrem: General: normal to inspection Psych: Mental Status: mental status grossly normal Assessment and Plan Assessment and plan (1) Colon cancer screening: Code(s): Z12.11 - Encounter for screening for malignant neoplasm of colon Status: Acute Assessment and Plan: colonoscopy
--- NOTE | 2025-03-28 08:45 | S_PTH ---
PATIENT: Gretchen Gibson LOC: [facility]#:[id number] AGE/SX: 69/F ROOM: RE03/28/[address]: Woody Mathur MD : 1955 BED: DIS: 03/28/2025 SPEC #: [id number] RECD: 03/28/25 09:03 STATUS: BRI REGenna #: [id number] RUBÉN: 03/28/25 08:[address]: Woody Mathur DEPT: [facility] [place] Surgical RECD BY: Patricia Kate ENTERED: 03/28/25 09:03 SP TYPE: Surgical OTHR DR: Kip Jackson MD Tissues: A - Colon Polypectomy Procedures: Hematoxylin and Eosin Stain Gross and Microscopic Level 4
[2025-03-28 08:48] VITALS: BP 92/49; PULSE 59; RESP 17; O2SAT 96
[2025-03-28 08:58] VITALS: BP 114/63; PULSE 60; RESP 20; O2SAT 100
[2025-03-28 09:08] VITALS: BP 120/59; PULSE 61; RESP 21; O2SAT 100
== END 2025-03-28 09:20 | disposition home or self-care (01) ==
PROVIDERS: PCP Family Medicine; Referring Provider Family Medicine; Visit Provider Internal Medicine Gastroenterology
PROC: 0DJD8ZZ Inspection of Lower Intestinal Tract, Via Natural or Artificial Opening Endoscopic (ICD-10-PCS; CPT 45378; principal; 2025-03-28 09:00)
DX: Z12.11 Encounter for screening for malignant neoplasm of colon (principal); D12.3 Benign neoplasm of transverse colon; K64.8 Other hemorrhoids; K57.30 Diverticulosis of large intestine without perforation or abscess without bleeding; E03.9 Hypothyroidism, unspecified; K21.9 Gastro-esophageal reflux disease without esophagitis; F40.240 Claustrophobia; M81.0 Age-related osteoporosis without current pathological fracture; E78.00 Pure hypercholesterolemia, unspecified; F32.A Depression, unspecified; G47.33 Obstructive sleep apnea (adult) (pediatric); F12.90 Cannabis use, unspecified, uncomplicated; E66.9 Obesity, unspecified; Z68.29 Body mass index [BMI] 29.0-29.9, adult; Z79.1 Long term (current) use of non-steroidal anti-inflammatories (NSAID); Z99.89 Dependence on other enabling machines and devices; Z98.890 Other specified postprocedural states; Z90.49 Acquired absence of other specified parts of digestive tract; Z87.19 Personal history of other diseases of the digestive system; Z80.8 Family history of malignant neoplasm of other organs or systems; Z82.49 Family history of ischemic heart disease and other diseases of the circulatory system
CPT/HCPCS: 45385; 88305; J2003; J2704; J7120

== ENCOUNTER 2025-05-05 09:09 | Outpatient (CLI) | payer MEDICARE, SELFPAY ==
--- NOTE | ~2025-05-05 | MM_ITS ---
EXAMINATION: MM screening [facility] BI w curtis HISTORY: Screening TECHNIQUE: Craniocaudal and mediolateral oblique 3-D tomosynthesis images were obtained and synthetic 2-D images were generated. CAD analysis was submitted and interpreted. COMPARISON: No prior mammogram is available for comparison at this institution. BREAST PARENCHYMAL COMPOSITION: There are scattered areas of fibroglandular density. FINDINGS: Indeterminate calcifications in the upper inner quadrant of the right breast, middle depth. Indeterminate calcifications in the upper-outer quadrant of the right breast, anterior depth. Indeterminate calcifications in the upper-outer quadrant of the left breast, middle depth. Focal asymmetry in the lower inner quadrant of the left breast, anterior depth. IMPRESSION: 1. Indeterminate calcifications in the upper inner quadrant of the right breast, middle depth. Indeterminate calcifications in the upper-outer quadrant of the right breast, anterior depth. The study is incomplete. A diagnostic mammogram is recommended. 2. Indeterminate calcifications in the upper-outer quadrant of the left breast, middle depth. Focal asymmetry in the lower inner quadrant of the left breast, anterior depth. The study is incomplete. A diagnostic mammogram and a diagnostic ultrasound are recommended. BI-RADS 0: Incomplete-Need additional imaging evaluation. Reviewed, dictated and finalized at location Q. IMPRESSION: 1. Indeterminate calcifications in the upper inner quadrant of the right breast , middle depth. Indeterminate calcifications in the upper-outer quadrant of the right breast, anterior depth. The study is incomplete. A diagnostic mammogram is recommended. 2. Indeterminate calcifications in the upper-outer quadrant of the left breast, middle depth. Focal asymmetry in the lower inner quadrant of the left breast, anterior depth. The study is incomplete. A diagnostic mammogram and a diagnosti c ultrasound are recommended. BI-RADS 0: Incomplete-Need additional imaging evaluation.
--- OUTSIDE RECORDS SUMMARY | 2025-05-05 09:33 | XMS_ITS | Encounter Summary ---
Author Organization [facility] Address [facility] [place] [address] Care Team Providers Care Site Supervising Technical Operator Name Role Phone Kip Jackson MD Primary Care Provider [phone] Encounter Details Date Type Department Care Team (Late st Contact Info) Description 10/03/2017 Abstract [facility] CONVERSION [address] [place] [address] , Generic ConversionMD Social History Tobacco Use Types Packs/Day Years Used Date Smoking Tobacco: Never Assessed Comments Unknown Sex and Gender Information Value Date Recorded Sex Assigned at Not on file 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
--- OUTSIDE RECORDS SUMMARY | 2025-05-05 09:33 | XMS_ITS | Clinical Summary ---
Author Organization [facility] Address [address] [place] [address] Care Team Providers Care Web Services Architect Name Role Phone Kip Jackson MD Primary Care Provider [phone] Source Comments [facility],non-owned Affiliates and Associated Physician Practices is amultiple site organization consisting of ambulatory clinics and hospital sitesin [place], [place], [place] and [place]. This disclosure is being madepursuant to the Care Everywhere program and may not contain all information available regarding this patient. Last updated 18.[facility] Allergies No known active allergies Medications * [...] (1 of 2) 2005 DEPRESSION SCREENING 07/20/2024 MEDICARE AWV CALENDAR YEAR 2024 COVID-19 VACCINE (1 - 2023-2 5 season) [...] age to complete this topic Insurance [employer] AETNA MEDICARE ADV SELF PAY NO INSURANCE Member Subscriber Plan / Payer (Ef fective for All Dates) Name:Ernesto Gibson Member ID:Not on file Relation to Subscriber:Not on file Name:ERNESTO GIBSON Subscriber ID:Not on file (Home) Address: [facility] [place] [address] Payer ID:Not on file Group ID:Not on file Type:Self Pay Address: [place], [place] [employer] Care Teams Web Services Architect Relationship Specialty Start Date End Date Kip Jackson MD [address] [place] [address] PCP - General Family Medicine 01/14/17
--- OUTSIDE RECORDS SUMMARY | 2025-05-05 09:33 | XMS_ITS | Clinical Summary ---
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
== END 2025-05-05 09:10 | disposition home or self-care (01) ==
LOC: ANHFOHIMG 09:11
PROVIDERS: PCP Family Medicine; Visit Provider Family Medicine
DX: Z12.31 Encounter for screening mammogram for malignant neoplasm of breast (principal); R92.8 Other abnormal and inconclusive findings on diagnostic imaging of breast
CPT/HCPCS: 77063; 77067

== ENCOUNTER 2025-07-03 10:24 | Outpatient (CLI) | payer MEDICARE, SELFPAY ==
--- NOTE | ~2025-07-03 | MMUS_ITS ---
EXAMINATION: MM diagnostic [facility] BI w curtis, US breast LT limited INDICATION: 69-year old female; Birads 0, evaliate bilateral breast findings. COMPARISON: 05/05/25 TECHNIQUE: Digital breast tomosynthesis CC and ML Magnification views of the BILATERAL breast and True lateral and spot compression of the LEFT breast were obtained . FINDINGS: There are scattered areas of fibroglandular density. Coarse calcifications persists in the areas of concern in both breast. Circumscribed mass persist in the inferior central anterior depth Left breast. LEFT BREAST ULTRASOUND FINDINGS: Targeted sonographic evaluation of the area of concern was completed. At 6:00, subareolar location, corresponding to the mammogram finding, there is a 0.44 x 0.25 x 0.27 cm anechoic circumscribed mass compatible with a cyst. IMPRESSION: 1. Simple cyst correlate to Left subareolar mass. No further investigation need. 2. Coarse calcifications Bilateral breasts. Comparison with prior mammograms advised. Recommendations: Obtain prior outside mammogram for comparison. BI-RADS Category 0: Incomplete: Need prior mammograms for comparison. Reviewed, dictated and finalized at location B. RETE FENCE BUILDER IMPRESSION: 1. Simple cyst correlate to Left subareolar mass. No further investigation need . 2. Coarse calcifications Bilateral breasts. Comparison with prior mammograms ad vised. Recommendations: Obtain prior outside mammogram for comparison. BI-RADS Category 0: Incomplete: Need prior mammograms for comparison.
== END 2025-07-03 10:25 | disposition home or self-care (01) ==
PROVIDERS: PCP Family Medicine; Visit Provider Family Medicine
DX: R92.1 Mammographic calcification found on diagnostic imaging of breast (principal)
CPT/HCPCS: 76642; 77062; 77066; G0279